=== PATIENT | male | born 1965 | race African-American/Black ===

== ENCOUNTER 2016-07-12 02:57 | Inpatient (IN) | payer OTHER ==
[2016-07-12] VITALS (13 sets, daily range): BP systolic 128–163; BP diastolic 75–98
[~2016-07-12] VITALS: Ht 193 cm; Wt 114.5 kg
[~2016-07-12 02:57] MED LIST: BENZTROPINE MESY1 MG PO; CALCIUM-VITAMI1 EAC2 PO; DEPAKOTE250 MG PO; DEPAKOTE500 MG PO; EFFEXOR XR150 MG PO; GABAPENTIN600 MG PO; GINKGO BILOBA500 MG PO; HUMALOG100 UNIT/1 SC; HUMULIN 70100 UNIT/2 SC; HUMULIN R100 UNITS/ SC; HYDROCHLOROTHIA25 MG PO; LEVEMIR FL100 UNIT/1 SC; LEVEMIR100 UNIT/2 SC; LIPITOR40 MG PO; LISINOPRIL10 MG PO; LISINOPRIL20 MG PO; LISINOPRIL5 MG PO; LO-DOSE ASPIRIN81 M1 PO; LOXAPINE5 MG PO; MELOXICAM7.5 MG PO; METFORMIN HCL500 MG PO; METHOCARBAMOL500 MG PO; MOBIC7.5 MG PO; NEURONTIN600 MG PO; NOVOLOG PE100 UNITS/ SC; PREDNISONE20 MG PO; PROAIR RESPICL90 MCG IH; QVAR 80 MCG IN7.3 GM IH; RISPERDAL3 MG PO; ROBAXIN500 MG PO; THIOTHIXENE5 MG PO; THORAZINE50 MG PO; TRAZODONE HCL150 MG PO; VENLAFAXINE HC150 M1 PO; VENTOLIN HFA18 GM IH; WELLBUTRIN XL150 MG PO; ZITHROMAX Z-PA250 MG PO
[2016-07-12 03:36] LABS: ADD MIUA? NO; BILIRUBIN NEGATIVE; BLOOD NEGATIVE; COLOR YELLOW ((YELLOW)); GLUCOSE (STRIP) >=1000; KETONES 40; LEUKOCYTES NEGATIVE; NITRITE NEGATIVE; PROTEIN (STRIP) TRACE; UCUL ADDED? NO; UROBILINOGEN 0.2 MG/DL (0.2-1.0)
[2016-07-12 03:37] LABS: EOSINOPHIL (%) 1.3 % (0-5); EOSINOPHIL COUNT 0.1 K/uL (0-0.3); HEMATOCRIT 42.4 % (38.0-50.0); IMMATURE GRANULOCYTE (%) 0.1 % (0.0-0.7); IMMATURE GRANULOCYTE COUNT 0.1 K/uL; LYMPHOCYTE COUNT 2.1 K/uL (1.0-2.8); MCHC 35.4 G/DL (30.0-36.0); MCV 81.9 FL (86-99); MEAN PLAT.VOLUME 10.6 uM^3 (9.0-12.4); MONOCYTE (%) 8.4 % (3-12); MONOCYTE COUNT 0.8 K/uL (0-0.8); NEUTROPHIL (%) 68.3 % (45-76); NEUTROPHIL COUNT 6.5 K/uL (1.8-6.4); PLATELET COUNT 296 K/uL (156-360); RBC DIS.WIDTH-CV 13.1 % (11.8-14.6); RBC DIS.WIDTH-SD 38.3 % (39-53); RED BLOOD COUNT 5.18 M/uL (4.00-5.50); WHITE BLOOD COUNT 9.5 K/uL (4.1-10.2)
[2016-07-12 03:43] LABS: CARBON DIOXIDE (BICARBONATE) 20.8 MEQ/L (20-31)
[2016-07-12 03:46] LABS: CHLORIDE 95 mEq/L (99-109); POTASSIUM 4.2 mEq/L (3.7-5.4); SODIUM 131 mEq/L (136-147)
[2016-07-12 03:47] LABS: MAGNESIUM 2.2 mg/dL (1.3-2.7)
[2016-07-12 03:50] LABS: ANION GAP 21 MEQ/L (2-14); TOTAL BILIRUBIN 0.5 mg/dL (0.0-1.0)
[2016-07-12 03:52] LABS: ALKALINE PHOSPHATASE 78 IU/L (3-129); GFR ESTIMATE (CALCULATED) > 59 mL/min/
[2016-07-12 03:53] LABS: UREA NITROGEN (BUN) 10 mg/dL (9-23)
[2016-07-12 04:01] LABS: GLUCOSE 464 mg/dL (70-99)
[2016-07-12 05:10] LABS: POINT-OF-CARE METER ID UU14100415; POINT-OF-CARE USER ID HMLKAV
[2016-07-12 05:48] LABS: CHLORIDE 101 mEq/L (99-109); POTASSIUM 4.2 mEq/L (3.7-5.4); SODIUM 133 mEq/L (136-147)
[2016-07-12 05:50] LABS: GLUCOSE 281 mg/dL (70-99)
[2016-07-12 05:51] LABS: ANION GAP 17 MEQ/L (2-14)
[2016-07-12 05:53] LABS: GFR ESTIMATE (CALCULATED) > 59 mL/min/
[2016-07-12 05:54] LABS: UREA NITROGEN (BUN) 9 mg/dL (9-23)
[2016-07-12 07:14] LABS: POINT-OF-CARE METER ID UU14100415
[2016-07-12] MEDS ORDERED: PRINIVIL20 MG PO (07:43)
[2016-07-12] MEDS ORDERED: REMERON15 M2 PO (07:46)
[2016-07-12 08:54] LABS: POINT-OF-CARE METER ID UU14100415
[2016-07-12 09:52] LABS: POINT-OF-CARE METER ID UU14100415
[2016-07-12 10:59] LABS: POINT-OF-CARE METER ID UU13113748
[2016-07-12 11:46] LABS: POINT-OF-CARE METER ID UU14100415; POINT-OF-CARE USER ID HMLKAV
[2016-07-12 11:57] LABS: POINT-OF-CARE METER ID UU13113748
[2016-07-12 12:25] LABS: MAGNESIUM 2.2 mg/dl (1.3-2.7)
[2016-07-12 13:01] LABS: POINT-OF-CARE METER ID UU13113748
[2016-07-12 13:20] LABS: METH RESISTANT S AUREUS PCR NEGATIVE (NEGATIVE); PROBE CHECK PASS; SPECIMEN PROCESSING CONTROL PASS
[2016-07-12 13:46] LABS: Estimated Average Glucose 243 mg/dL (70-123)
[2016-07-12 13:48] LABS: HEMOGLOBIN A1c (GLYCOHEMOGLOB) 10.1 % HGB (Below 5.7)
[2016-07-12 13:57] LABS: POINT-OF-CARE METER ID UU13113748
[2016-07-12 15:11] LABS: POINT-OF-CARE METER ID UU14162636
[2016-07-12 15:59] LABS: POINT-OF-CARE METER ID UU13113748
[2016-07-12 16:22] LABS: ANION GAP 14 MEQ/L (2-14); CHLORIDE 101 MEQ/L (99-109); POTASSIUM 3.9 MEQ/L (3.7-5.4); SAMPLE HEMOLYSIS CHECK 0; SAMPLE ICTERIC CHECK 0; SAMPLE LIPEMIA CHECK 0; SODIUM 134 MEQ/L (136-147)
[2016-07-12 16:27] LABS: GFR ESTIMATE (CALCULATED) > 59 mL/min/; GLUCOSE 143 mg/dL (70-99); UREA NITROGEN (BUN) 7 mg/dL (9-23)
[2016-07-12 16:53] LABS: POINT-OF-CARE METER ID UU14162636
[2016-07-12 17:18] LABS: POINT-OF-CARE METER ID UU13113748
[2016-07-12 18:46] LABS: POINT-OF-CARE METER ID UU13113748
[2016-07-12 20:14] LABS: ANION GAP 19 MEQ/L (2-14); CHLORIDE 97 MEQ/L (99-109); SAMPLE HEMOLYSIS CHECK 0; SAMPLE ICTERIC CHECK 0; SAMPLE LIPEMIA CHECK 0; SODIUM 134 MEQ/L (136-147)
[2016-07-12 20:19] LABS: GFR ESTIMATE (CALCULATED) > 59 mL/min/; UREA NITROGEN (BUN) 9 mg/dL (9-23)
[2016-07-12 20:29] LABS: GLUCOSE 272 mg/dL (70-99)
[2016-07-13] VITALS (13 sets, daily range): BP systolic 107–172; BP diastolic 67–92
[2016-07-13 00:33] LABS: CHLORIDE 102 mEq/L (99-109); POTASSIUM 3.7 mEq/L (3.7-5.4); SODIUM 134 mEq/L (136-147)
[2016-07-13 00:35] LABS: GLUCOSE 262 mg/dL (70-99)
[2016-07-13 00:36] LABS: ANION GAP 15 MEQ/L (2-14)
[2016-07-13 00:39] LABS: GFR ESTIMATE (CALCULATED) > 59 mL/min/; UREA NITROGEN (BUN) 9 mg/dL (9-23)
[2016-07-13 04:40] LABS: EOSINOPHIL (%) 3.4 % (0-5); EOSINOPHIL COUNT 0.2 K/uL (0-0.3); HEMATOCRIT 38.7 % (38.0-50.0); IMMATURE GRANULOCYTE (%) 0.1 % (0.0-0.7); IMMATURE GRANULOCYTE COUNT 0.1 K/uL; LYMPHOCYTE COUNT 2.7 K/uL (1.0-2.8); MCH 28.8 PG (29.0-34.0); MCHC 34.6 G/DL (30.0-36.0); MCV 83.2 FL (86-99); MEAN PLAT.VOLUME 10.7 uM^3 (9.0-12.4); MONOCYTE (%) 7.2 % (3-12); MONOCYTE COUNT 0.5 K/uL (0-0.8); NEUTROPHIL (%) 51.1 % (45-76); NEUTROPHIL COUNT 3.6 K/uL (1.8-6.4); PLATELET COUNT 249 K/uL (156-360); RBC DIS.WIDTH-CV 13.6 % (11.8-14.6); RBC DIS.WIDTH-SD 39.3 % (39-53); RED BLOOD COUNT 4.65 M/uL (4.00-5.50); WHITE BLOOD COUNT 7.1 K/uL (4.1-10.2)
[2016-07-13 04:46] LABS: CHLORIDE 102 mEq/L (99-109); POTASSIUM 4.1 mEq/L (3.7-5.4); SODIUM 135 mEq/L (136-147)
[2016-07-13 04:48] LABS: GLUCOSE 306 mg/dL (70-99)
[2016-07-13 04:50] LABS: ANION GAP 15 MEQ/L (2-14)
[2016-07-13 04:52] LABS: GFR ESTIMATE (CALCULATED) > 59 mL/min/
[2016-07-13 04:53] LABS: UREA NITROGEN (BUN) 10 mg/dL (9-23)
[2016-07-13 08:58] LABS: ANION GAP 13 MEQ/L (2-14); CHLORIDE 102 MEQ/L (99-109); GFR ESTIMATE (CALCULATED) > 59 mL/min/; GLUCOSE 251 mg/dL (70-99); SAMPLE HEMOLYSIS CHECK 0; SAMPLE ICTERIC CHECK 0; SAMPLE LIPEMIA CHECK 0; SODIUM 135 MEQ/L (136-147); UREA NITROGEN (BUN) 9 mg/dL (9-23)
[2016-07-13 12:37] LABS: POINT-OF-CARE METER ID UU13113748
[2016-07-13 12:46] LABS: ANION GAP 14 MEQ/L (2-14); CHLORIDE 99 MEQ/L (99-109); GFR ESTIMATE (CALCULATED) > 59 mL/min/; GLUCOSE 326 mg/dL (70-99); POTASSIUM 4.1 MEQ/L (3.7-5.4); SAMPLE HEMOLYSIS CHECK 0; SAMPLE ICTERIC CHECK 0; SAMPLE LIPEMIA CHECK 0; SODIUM 134 MEQ/L (136-147); UREA NITROGEN (BUN) 9 mg/dL (9-23)
[2016-07-14 05:50] LABS: POINT-OF-CARE METER ID UU13113725
[2016-07-14 06:33] LABS: EOSINOPHIL (%) 3.4 % (0-5); EOSINOPHIL COUNT 0.2 K/uL (0-0.3); IMMATURE GRANULOCYTE (%) 0.2 % (0.0-0.7); LYMPHOCYTE COUNT 2.1 K/uL (1.0-2.8); MCH 28.7 PG (29.0-34.0); MCHC 33.3 G/DL (30.0-36.0); MCV 86.1 FL (86-99); MEAN PLAT.VOLUME 11.7 uM^3 (9.0-12.4); MONOCYTE (%) 9.5 % (3-12); MONOCYTE COUNT 0.5 K/uL (0-0.8); NEUTROPHIL (%) 48.7 % (45-76); NEUTROPHIL COUNT 2.7 K/uL (1.8-6.4); NRBC (%) 0.7 /100 WBC (0-0); PLATELET COUNT 232 K/uL (156-360); RBC DIS.WIDTH-CV 13.8 % (11.8-14.6); RBC DIS.WIDTH-SD 42.5 % (39-53); RED BLOOD COUNT 4.53 M/uL (4.00-5.50); WHITE BLOOD COUNT 5.6 K/uL (4.1-10.2)
[2016-07-14 08:51] VITALS: BP 138/70
[2016-07-14 11:14] LABS: POINT-OF-CARE METER ID UU13113725
[2016-07-14 12:38] LABS: ANION GAP 10 MEQ/L (2-14); CHLORIDE 104 MEQ/L (99-109); GFR ESTIMATE (CALCULATED) > 59 mL/min/; GLUCOSE 312 mg/dL (70-99); SAMPLE HEMOLYSIS CHECK 0; SAMPLE ICTERIC CHECK 0; SAMPLE LIPEMIA CHECK 1; SODIUM 136 MEQ/L (136-147); UREA NITROGEN (BUN) 9 mg/dL (9-23)
[2016-07-14 16:13] VITALS: BP 191/89
[2016-07-14 16:18] LABS: POINT-OF-CARE METER ID UU13113725
[2016-07-14 22:50] VITALS: BP 132/70
[2016-07-15 05:50] LABS: EOSINOPHIL (%) 3.6 % (0-5); EOSINOPHIL COUNT 0.2 K/uL (0-0.3); HEMATOCRIT 39.5 % (38.0-50.0); IMMATURE GRANULOCYTE (%) 0.2 % (0.0-0.7); LYMPHOCYTE COUNT 1.9 K/uL (1.0-2.8); MCH 28.9 PG (29.0-34.0); MCHC 33.7 G/DL (30.0-36.0); MCV 85.9 FL (86-99); MEAN PLAT.VOLUME 11.3 uM^3 (9.0-12.4); MONOCYTE COUNT 0.4 K/uL (0-0.8); NEUTROPHIL (%) 53.3 % (45-76); NEUTROPHIL COUNT 2.9 K/uL (1.8-6.4); PLATELET COUNT 221 K/uL (156-360); RBC DIS.WIDTH-CV 13.7 % (11.8-14.6); RBC DIS.WIDTH-SD 42.7 % (39-53); WHITE BLOOD COUNT 5.5 K/uL (4.1-10.2)
[2016-07-15 06:04] LABS: POINT-OF-CARE METER ID UU13113725
[2016-07-15 07:58] VITALS: BP 155/95
[2016-07-15 11:27] LABS: ANION GAP 12 MEQ/L (2-14); CHLORIDE 106 MEQ/L (99-109); GFR ESTIMATE (CALCULATED) > 59 mL/min/; GLUCOSE 332 mg/dL (70-99); POTASSIUM 4.2 MEQ/L (3.7-5.4); SODIUM 141 MEQ/L (136-147); UREA NITROGEN (BUN) 10 mg/dL (9-23)
[2016-07-15 11:45] LABS: ADD MIUA? YES; BILIRUBIN NEGATIVE; BLOOD NEGATIVE; COLOR YELLOW ((YELLOW)); GLUCOSE (STRIP) >=1000; KETONES NEGATIVE; LEUKOCYTES SMALL; NITRITE NEGATIVE; PROTEIN (STRIP) NEGATIVE; SPECIFIC GRAVITY 1.035 (1.000-1.030)
[2016-07-15 13:44] LABS: EPITHELIAL CELLS RARE; MUCUS NONE SEEN; RED BLOOD CELLS 0-5 /HPF (0-5)
[2016-07-15 13:45] LABS: BACTERIA NONE SEEN; CASTS NONE SEEN /LPF; CRYSTALS NONE SEEN
[2016-07-15 17:06] VITALS: BP 139/78
[2016-07-15 22:39] VITALS: BP 138/83
[2016-07-16 06:53] LABS: ANION GAP 9 MEQ/L (2-14); CHLORIDE 105 MEQ/L (99-109); GFR ESTIMATE (CALCULATED) > 59 mL/min/; GLUCOSE 356 mg/dL (70-99); SAMPLE HEMOLYSIS CHECK 0; SAMPLE ICTERIC CHECK 0; SAMPLE LIPEMIA CHECK 0; SODIUM 141 MEQ/L (136-147); UREA NITROGEN (BUN) 11 mg/dL (9-23)
[2016-07-16 08:47] VITALS: BP 126/88
[2016-07-16] MEDS ORDERED: GLUCOMETER MC (10:46)
[2016-07-16] MEDS ORDERED: GABAPENTIN300 MG PO (10:46)
[2016-07-16] MEDS ORDERED: LEVEMIR FL100 UNIT/1 SC (10:46)
[2016-07-16] MEDS ORDERED: NOVOLOG PE100 UNITS/ SC (10:46)
[2016-07-16] MEDS ORDERED: TEST STRIPS MC (10:46)
[2016-07-16] MEDS ORDERED: [UNRECOGNIZED DRUG - SUPPLY] MC (10:46)
[2016-07-16 16:09] VITALS: BP 130/86
[2016-07-17 12:37] LABS: CHLAMYDIA TRACHOMATIS NEGATIVE; NEISSERIA GONORRHOEAE NEGATIVE
== END 2016-07-16 17:11 | disposition home or self-care (01) | DRG 638 ==
LOC: EME 02:57 → 4WEST 07:53 → 5EAST 07:53 → EDOF 07:53 → 4WEST 10:05 → 5EAST 07-13 17:02
PROVIDERS: Emergency Medicine; Hospitalist; Internal Medicine; Internal Medicine Nephrology
DX: E10.10 Type 1 diabetes mellitus with ketoacidosis without coma (principal); E87.1 Hypo-osmolality and hyponatremia; N17.9 Acute kidney failure, unspecified; F33.9 Major depressive disorder, recurrent, unspecified; E10.42 Type 1 diabetes mellitus with diabetic polyneuropathy; E86.0 Dehydration; E10.65 Type 1 diabetes mellitus with hyperglycemia; K21.9 Gastro-esophageal reflux disease without esophagitis; Z91.128 Patient's intentional underdosing of medication regimen for other reason; I10 Essential (primary) hypertension; F17.210 Nicotine dependence, cigarettes, uncomplicated; R00.0 Tachycardia, unspecified; G40.909 Epilepsy, unspecified, not intractable, without status epilepticus; F20.9 Schizophrenia, unspecified; J45.909 Unspecified asthma, uncomplicated; Z79.4 Long term (current) use of insulin
CPT/HCPCS: 80048; 80048 91; 80053; 80164; 81003; 82009; 82803; 82948; 83036; 83735; 84100; 85025; 87491; 87591; 87641; 94640; 94640 76; 99202; 99281; 99285; J0456; J1644; J1815; J7030; J7050; J7120

== ENCOUNTER 2016-07-22 20:05 | Inpatient (IN) | payer OTHER ==
[~2016-07-22] VITALS: Ht 193 cm; Wt 111.0 kg
[~2016-07-22 20:05] MED LIST changes: +GABAPENTIN300 MG PO; +GLUCOMETER MC; +PRINIVIL20 MG PO; +REMERON15 M2 PO; +TEST STRIPS MC; +[UNRECOGNIZED DRUG - SUPPLY] MC
[2016-07-22 20:24] LABS: ADD MIUA? NO; BILIRUBIN NEGATIVE; BLOOD NEGATIVE; COLOR YELLOW ((YELLOW)); GLUCOSE (STRIP) >=1000; KETONES 40; LEUKOCYTES NEGATIVE; NITRITE NEGATIVE; PROTEIN (STRIP) NEGATIVE; SPECIFIC GRAVITY 1.035 (1.000-1.030); UCUL ADDED? NO; UROBILINOGEN 0.2 MG/DL (0.2-1.0)
[2016-07-22 21:17] LABS: CARBON DIOXIDE (BICARBONATE) 14.5 MEQ/L (20-31)
[2016-07-22 21:19] LABS: CHLORIDE 92 mEq/L (99-109); HEMATOCRIT 41.3 % (38.0-50.0); MCH 28.9 PG (29.0-34.0); MCHC 35.6 G/DL (30.0-36.0); MCV 81.1 FL (86-99); MEAN PLAT.VOLUME 11.2 uM^3 (9.0-12.4); PLATELET COUNT 382 K/uL (156-360); POTASSIUM 4.7 mEq/L (3.7-5.4); RBC DIS.WIDTH-CV 13.1 % (11.8-14.6); RBC DIS.WIDTH-SD 37.6 % (39-53); RED BLOOD COUNT 5.09 M/uL (4.00-5.50); WHITE BLOOD COUNT 8.9 K/uL (4.1-10.2)
[2016-07-22 21:21] LABS: GLUCOSE 712 mg/dL (70-99); SODIUM 128 mEq/L (136-147)
[2016-07-22 21:22] LABS: ANION GAP 22 MEQ/L (2-14)
[2016-07-22 21:23] LABS: TOTAL BILIRUBIN 0.4 mg/dL (0.0-1.0)
[2016-07-22 21:25] LABS: ALKALINE PHOSPHATASE 71 IU/L (3-129); GFR ESTIMATE (CALCULATED) 43 mL/min/
[2016-07-22 21:28] LABS: UREA NITROGEN (BUN) 22 mg/dL (9-23)
[2016-07-22 23:44] LABS: POINT-OF-CARE METER ID UU14100415
[2016-07-23] VITALS (17 sets, daily range): BP systolic 124–186; BP diastolic 59–95
[2016-07-23 00:12] LABS: POINT-OF-CARE METER ID UU14100415
[2016-07-23 00:23] LABS: AMPHETAMINE NEGATIVE (500 ng/mL); BARBITURATES NEGATIVE (200 ng/mL); BENZODIAZEPINES NEGATIVE (150 ng/mL); COCAINE NEGATIVE (150 ng/mL); INTERNAL CONTROLS VALID? YES; METHADONE NEGATIVE (200 ng/mL); METHAMPHETAMINE NEGATIVE (500 ng/mL); OPIATES (MORPHINE) NEGATIVE (100 ng/mL); OXYCODONE NEGATIVE (100 ng/mL); PHENCYCLIDINE NEGATIVE (25 ng/mL); PROPOXYPHENE NEGATIVE (300 ng/mL); THC CANNABINOIDS NEGATIVE (50 ng/mL); TRICYCLIC ANTIDEPRESSANTS NEGATIVE (300 ng/mL)
[2016-07-23 00:46] LABS: POINT-OF-CARE METER ID UU13113803
[2016-07-23 00:46] LABS: SERUM ETHYL ALCOHOL < 10 mg/dL
[2016-07-23 00:57] LABS: POTASSIUM 4.2 mEq/L (3.7-5.4); SODIUM 132 mEq/L (136-147)
[2016-07-23 00:59] LABS: CHLORIDE 102 mEq/L (99-109); GLUCOSE 333 mg/dL (70-99)
[2016-07-23 01:00] LABS: ANION GAP 17 MEQ/L (2-14)
[2016-07-23 01:02] LABS: GFR ESTIMATE (CALCULATED) > 59 mL/min/
[2016-07-23 01:03] LABS: UREA NITROGEN (BUN) 17 mg/dL (9-23)
[2016-07-23 01:31] LABS: INFLUENZA A VIRAL ANTIGEN NEGATIVE; INFLUENZA B VIRAL ANTIGEN NEGATIVE
[2016-07-23 01:47] LABS: METH RESISTANT S AUREUS PCR NEGATIVE (NEGATIVE)
[2016-07-23 01:50] LABS: PROBE CHECK PASS; SPECIMEN PROCESSING CONTROL PASS
[2016-07-23 01:52] LABS: POINT-OF-CARE METER ID UU14162636
[2016-07-23 02:41] LABS: MAGNESIUM 2.4 mg/dL (1.3-2.7)
[2016-07-23 02:58] LABS: POINT-OF-CARE METER ID UU13113748
[2016-07-23 03:54] LABS: HEMATOCRIT 36.4 % (38.0-50.0); MCH 28.9 PG (29.0-34.0); MCHC 35.7 G/DL (30.0-36.0); MCV 80.9 FL (86-99); MEAN PLAT.VOLUME 10.7 uM^3 (9.0-12.4); PLATELET COUNT 345 K/uL (156-360); RBC DIS.WIDTH-CV 13.2 % (11.8-14.6); RBC DIS.WIDTH-SD 37.5 % (39-53); WHITE BLOOD COUNT 9.2 K/uL (4.1-10.2)
[2016-07-23 04:04] LABS: POINT-OF-CARE METER ID UU13113748
[2016-07-23 04:07] LABS: CHLORIDE 106 mEq/L (99-109); SODIUM 135 mEq/L (136-147)
[2016-07-23 04:09] LABS: GLUCOSE 195 mg/dL (70-99)
[2016-07-23 04:10] LABS: ANION GAP 14 MEQ/L (2-14)
[2016-07-23 04:14] LABS: UREA NITROGEN (BUN) 12 mg/dL (9-23)
[2016-07-23 04:17] LABS: GFR ESTIMATE (CALCULATED) > 59 mL/min/
[2016-07-23 05:18] LABS: POINT-OF-CARE METER ID UU13113731
[2016-07-23 06:12] LABS: POINT-OF-CARE METER ID UU13113748
[2016-07-23 07:21] LABS: POINT-OF-CARE METER ID UU13113748
[2016-07-23 08:11] LABS: IRON 47 MCG/DL (35-150)
[2016-07-23 08:15] LABS: POINT-OF-CARE METER ID UU13113748
[2016-07-23 08:58] LABS: POINT-OF-CARE METER ID UU13113748
[2016-07-23 09:17] LABS: ANION GAP 9 MEQ/L (2-14); CHLORIDE 105 MEQ/L (99-109); GFR ESTIMATE (CALCULATED) > 59 mL/min/; GLUCOSE 204 mg/dL (70-99); SAMPLE HEMOLYSIS CHECK 0; SAMPLE ICTERIC CHECK 0; SAMPLE LIPEMIA CHECK 0; SODIUM 134 MEQ/L (136-147); UREA NITROGEN (BUN) 8 mg/dL (9-23)
[2016-07-23 09:28] LABS: POINT-OF-CARE METER ID UU13113748
[2016-07-23 10:24] LABS: POINT-OF-CARE METER ID UU13113748
[2016-07-23 11:00] LABS: POINT-OF-CARE METER ID UU13113748
[2016-07-23 12:03] LABS: POINT-OF-CARE METER ID UU13113748
[2016-07-23 12:40] LABS: ANION GAP 9 MEQ/L (2-14); CHLORIDE 104 MEQ/L (99-109); GFR ESTIMATE (CALCULATED) > 59 mL/min/; GLUCOSE 183 mg/dL (70-99); POTASSIUM 4.4 MEQ/L (3.7-5.4); SAMPLE HEMOLYSIS CHECK 0; SAMPLE ICTERIC CHECK 0; SAMPLE LIPEMIA CHECK 0; SODIUM 133 MEQ/L (136-147); UREA NITROGEN (BUN) 8 mg/dL (9-23)
[2016-07-23 12:50] LABS: POINT-OF-CARE METER ID UU13113748
[2016-07-23 13:39] LABS: POINT-OF-CARE METER ID UU13113748
[2016-07-23 17:56] LABS: POINT-OF-CARE METER ID UU13113748
[2016-07-23 21:25] LABS: POINT-OF-CARE METER ID UU14100415
[2016-07-23 21:25] LABS: POINT-OF-CARE METER ID UU14100415
[2016-07-23 21:58] LABS: POINT-OF-CARE METER ID UU13113748
[2016-07-24 00:45] LABS: CHLORIDE 105 mEq/L (99-109); POTASSIUM 3.9 mEq/L (3.7-5.4); SODIUM 138 mEq/L (136-147)
[2016-07-24 00:46] LABS: GLUCOSE 204 mg/dL (70-99)
[2016-07-24 00:48] LABS: ANION GAP 9 MEQ/L (2-14)
[2016-07-24 00:50] LABS: GFR ESTIMATE (CALCULATED) > 59 mL/min/
[2016-07-24 00:51] LABS: UREA NITROGEN (BUN) 10 mg/dL (9-23)
[2016-07-24 04:04] VITALS: BP 136/84
[2016-07-24 07:26] LABS: Estimated Average Glucose 275 mg/dL (70-123); HEMOGLOBIN A1c (GLYCOHEMOGLOB) 11.2 % HGB (Below 5.7)
[2016-07-24 09:20] VITALS: BP 135/77
[2016-07-24 11:32] VITALS: BP 123/69
[2016-07-24] MEDS ORDERED: NOVOLOG PE100 UNITS/ SC (14:45)
[2016-07-24 16:17] VITALS: BP 125/74
[2016-07-24 16:47] LABS: POINT-OF-CARE METER ID UU14149397
[2016-07-24 20:06] VITALS: BP 123/68
[2016-07-25 00:10] VITALS: BP 118/68
[2016-07-25 05:36] VITALS: BP 107/71
[2016-07-25 07:41] VITALS: BP 116/77
[2016-07-25] MEDS ORDERED: CEPHALEXIN500 MG PO ×2 (11:52→12:51)
[2016-07-25] MEDS ORDERED: NICOTINE PATCH1 EAC2 TD ×2 (11:52→12:51)
[2016-07-25] MEDS ORDERED: LEVEMIR100 UNIT/2 SC ×2 (11:53→12:51)
[2016-07-25] MEDS ORDERED: GABAPENTIN300 MG PO ×2 (11:53→12:51)
[2016-07-25] MEDS ORDERED: PERCOCET 5/31 TABLET PO ×2 (11:54→12:51)
[2016-07-25] MEDS ORDERED: NOVOLOG PE100 UNITS/ SC ×2 (11:54→12:51)
== END 2016-07-25 14:05 | disposition home or self-care (01) | DRG 638 ==
LOC: EME → EDBD 20:05 → EME 20:05 → EDOF 22:34 → 4WEST 22:34 → 3EAST 22:34 → 4WEST 07-23 00:15 → 3EAST 07-23 22:47
PROVIDERS: Emergency Medicine; Family Medicine; Hospitalist; Obstetrics & Gynecology
DX: E10.10 Type 1 diabetes mellitus with ketoacidosis without coma (principal); E87.1 Hypo-osmolality and hyponatremia; L03.116 Cellulitis of left lower limb; N17.9 Acute kidney failure, unspecified; F10.239 Alcohol dependence with withdrawal, unspecified; E86.0 Dehydration; I10 Essential (primary) hypertension; G40.909 Epilepsy, unspecified, not intractable, without status epilepticus; K21.9 Gastro-esophageal reflux disease without esophagitis; J45.909 Unspecified asthma, uncomplicated; F31.9 Bipolar disorder, unspecified; F25.9 Schizoaffective disorder, unspecified; F41.9 Anxiety disorder, unspecified; L40.9 Psoriasis, unspecified; F17.210 Nicotine dependence, cigarettes, uncomplicated; E87.8 Other disorders of electrolyte and fluid balance, not elsewhere classified; G89.29 Other chronic pain; E10.40 Type 1 diabetes mellitus with diabetic neuropathy, unspecified; E10.65 Type 1 diabetes mellitus with hyperglycemia; M19.90 Unspecified osteoarthritis, unspecified site; B95.1 Streptococcus, group B, as the cause of diseases classified elsewhere; Z79.4 Long term (current) use of insulin; Z83.3 Family history of diabetes mellitus; Z81.8 Family history of other mental and behavioral disorders; Z82.49 Family history of ischemic heart disease and other diseases of the circulatory system
CPT/HCPCS: 71010; 73660; 80048; 80048 91; 80053; 81003; 82009; 82607; 82746; 82803; 82948; 83036; 83540; 83735; 84100; 84466; 85027; 87070; 87075; 87076; 87077; 87205; 87502; 87641; 94640; 94640 76; 94760; 99281; 99285; G0480; J1815; J3411; J7030; J7050; S0028

== ENCOUNTER 2016-08-14 19:28 | Inpatient (IN) | payer OTHER ==
[~2016-08-14] VITALS: Ht 193 cm; Wt 99.4 kg
[~2016-08-14 19:28] MED LIST changes: +CEPHALEXIN500 MG PO; +NICOTINE PATCH1 EAC2 TD; +PERCOCET 5/31 TABLET PO
[2016-08-14 19:59] LABS: EOSINOPHIL (%) 1.8 % (0-5); EOSINOPHIL COUNT 0.2 K/uL (0-0.3); HEMATOCRIT 42.5 % (38.0-50.0); IMMATURE GRANULOCYTE (%) 0.3 % (0.0-0.7); IMMATURE GRANULOCYTE COUNT 0.3 K/uL; LYMPHOCYTE COUNT 2.4 K/uL (1.0-2.8); MCH 29.5 PG (29.0-34.0); MCHC 34.1 G/DL (30.0-36.0); MEAN PLAT.VOLUME 11.1 uM^3 (9.0-12.4); MONOCYTE (%) 10.3 % (3-12); MONOCYTE COUNT 1.1 K/uL (0-0.8); NEUTROPHIL (%) 63.8 % (45-76); NEUTROPHIL COUNT 6.7 K/uL (1.8-6.4); PLATELET COUNT 265 K/uL (156-360); RBC DIS.WIDTH-CV 14.1 % (11.8-14.6); RED BLOOD COUNT 4.92 M/uL (4.00-5.50); WHITE BLOOD COUNT 10.4 K/uL (4.1-10.2)
[2016-08-14 20:00] LABS: MCV 86.4 FL (86-99)
[2016-08-14 20:04] LABS: CHLORIDE 97 mEq/L (99-109); POTASSIUM 4.1 mEq/L (3.7-5.4); SODIUM 133 mEq/L (136-147)
[2016-08-14 20:07] LABS: ANION GAP 16 MEQ/L (2-14)
[2016-08-14 20:08] LABS: TOTAL BILIRUBIN 0.5 mg/dL (0.0-1.0)
[2016-08-14 20:09] LABS: ALKALINE PHOSPHATASE 88 IU/L (3-129)
[2016-08-14 20:10] LABS: GFR ESTIMATE (CALCULATED) > 59 mL/min/
[2016-08-14 20:11] LABS: UREA NITROGEN (BUN) 11 mg/dL (9-23)
[2016-08-14 20:30] VITALS: BP 159/116
[2016-08-14 20:38] LABS: GLUCOSE 525 mg/dL (70-99)
[2016-08-14 21:30] VITALS: BP 190/108
[2016-08-14 22:16] LABS: C-REACTIVE PROTEIN 129.2 MG/L (0-10); SAMPLE HEMOLYSIS CHECK 0; SAMPLE ICTERIC CHECK 0; SAMPLE LIPEMIA CHECK 0
[2016-08-14 22:31] VITALS: BP 169/125
[2016-08-14] MEDS ORDERED: LEVEMIR FL100 UNIT/1 SC (22:40)
[2016-08-14] MEDS ORDERED: GABAPENTIN600 MG PO (22:41)
[2016-08-14] MEDS ORDERED: AMMONIUM LACTA140 GM TP (22:41)
[2016-08-14] MEDS ORDERED: LOTRISONE15 GM TP (22:41)
[2016-08-14 23:20] LABS: POINT-OF-CARE METER ID UU13113702
[2016-08-14 23:30] VITALS: BP 159/90
[2016-08-15] VITALS (7 sets, daily range): BP systolic 124–180; BP diastolic 64–97
[2016-08-15 06:30] LABS: HEMATOCRIT 40.5 % (38.0-50.0); MCH 29.5 PG (29.0-34.0); MCHC 33.1 G/DL (30.0-36.0); MCV 89.2 FL (86-99); MEAN PLAT.VOLUME 11.4 uM^3 (9.0-12.4); PLATELET COUNT 241 K/uL (156-360); RBC DIS.WIDTH-CV 14.4 % (11.8-14.6); RBC DIS.WIDTH-SD 46.4 % (39-53); RED BLOOD COUNT 4.54 M/uL (4.00-5.50); WHITE BLOOD COUNT 9.8 K/uL (4.1-10.2)
[2016-08-15 06:47] LABS: EOSINOPHIL (%) 2.5 % (0-5); EOSINOPHIL COUNT 0.2 K/uL (0-0.3); IMMATURE GRANULOCYTE (%) 0.2 % (0.0-0.7); MONOCYTE (%) 9.7 % (3-12); NEUTROPHIL (%) 57.3 % (45-76); NEUTROPHIL COUNT 5.6 K/uL (1.8-6.4)
[2016-08-15 06:52] LABS: ANION GAP 10 MEQ/L (2-14); CHLORIDE 103 MEQ/L (99-109); GFR ESTIMATE (CALCULATED) > 59 mL/min/; GLUCOSE 202 mg/dL (70-99); POTASSIUM 3.6 MEQ/L (3.7-5.4); SAMPLE HEMOLYSIS CHECK 0; SAMPLE ICTERIC CHECK 0; SAMPLE LIPEMIA CHECK 0; SODIUM 138 MEQ/L (136-147); UREA NITROGEN (BUN) 8 mg/dL (9-23)
[2016-08-15 15:35] LABS: POINT-OF-CARE METER ID UU14149397
[2016-08-15 21:53] LABS: POINT-OF-CARE METER ID UU14149397
[2016-08-16 01:25] VITALS: BP 131/80
[2016-08-16 04:23] VITALS: BP 127/79
[2016-08-16 07:32] VITALS: BP 136/87
[2016-08-16 07:32] LABS: EOSINOPHIL (%) 3.8 % (0-5); EOSINOPHIL COUNT 0.2 K/uL (0-0.3); HEMATOCRIT 38.6 % (38.0-50.0); IMMATURE GRANULOCYTE (%) 0.2 % (0.0-0.7); LYMPHOCYTE COUNT 1.9 K/uL (1.0-2.8); MCH 29.7 PG (29.0-34.0); MCHC 32.9 G/DL (30.0-36.0); MCV 90.2 FL (86-99); MEAN PLAT.VOLUME 11.3 uM^3 (9.0-12.4); MONOCYTE (%) 8.1 % (3-12); MONOCYTE COUNT 0.5 K/uL (0-0.8); NEUTROPHIL (%) 57.3 % (45-76); NEUTROPHIL COUNT 3.7 K/uL (1.8-6.4); PLATELET COUNT 233 K/uL (156-360); RBC DIS.WIDTH-CV 14.5 % (11.8-14.6); RBC DIS.WIDTH-SD 47.6 % (39-53); RED BLOOD COUNT 4.28 M/uL (4.00-5.50)
[2016-08-16 07:33] LABS: WHITE BLOOD COUNT 6.4 K/uL (4.1-10.2)
[2016-08-16 07:35] LABS: ANION GAP 7 MEQ/L (2-14); CHLORIDE 108 MEQ/L (99-109); GFR ESTIMATE (CALCULATED) > 59 mL/min/; GLUCOSE 208 mg/dL (70-99); MAGNESIUM 2.4 mg/dl (1.3-2.7); POTASSIUM 4.2 MEQ/L (3.7-5.4); SAMPLE HEMOLYSIS CHECK 0; SAMPLE ICTERIC CHECK 0; SAMPLE LIPEMIA CHECK 0; SODIUM 141 MEQ/L (136-147); UREA NITROGEN (BUN) 10 mg/dL (9-23)
[2016-08-16 10:17] LABS: GFR ESTIMATE (CALCULATED) > 59 mL/min/
[2016-08-16 10:33] LABS: VANCOMYCIN, TROUGH 2.5 MCG/ML (10-20)
[2016-08-16 12:34] VITALS: BP 141/88
[2016-08-16 16:30] VITALS: BP 152/94
[2016-08-16 20:38] VITALS: BP 135/89
[2016-08-17] VITALS: BP 152/82
[2016-08-17 05:27] VITALS: BP 145/100
[2016-08-17 06:42] LABS: HEMATOCRIT 40.8 % (38.0-50.0); MCHC 31.1 G/DL (30.0-36.0); MCV 90.1 FL (86-99); MEAN PLAT.VOLUME 10.6 uM^3 (9.0-12.4); PLATELET COUNT 264 K/uL (156-360); RBC DIS.WIDTH-CV 14.4 % (11.8-14.6); RBC DIS.WIDTH-SD 47.3 % (39-53); RED BLOOD COUNT 4.53 M/uL (4.00-5.50); WHITE BLOOD COUNT 6.1 K/uL (4.1-10.2)
[2016-08-17 07:01] LABS: ANION GAP 8 MEQ/L (2-14); CHLORIDE 108 MEQ/L (99-109); GFR ESTIMATE (CALCULATED) > 59 mL/min/; GLUCOSE 124 mg/dL (70-99); POTASSIUM 4.2 MEQ/L (3.7-5.4); SAMPLE HEMOLYSIS CHECK 0; SAMPLE ICTERIC CHECK 0; SAMPLE LIPEMIA CHECK 0; SODIUM 142 MEQ/L (136-147); UREA NITROGEN (BUN) 9 mg/dL (9-23)
[2016-08-17 07:42] VITALS: BP 120/88
[2016-08-17 10:44] VITALS: BP 138/84
[2016-08-17 16:21] VITALS: BP 145/92
[2016-08-17 19:57] VITALS: BP 133/71
[2016-08-17 21:23] LABS: POINT-OF-CARE USER ID 603211116
[2016-08-18 00:29] VITALS: BP 144/85
[2016-08-18 02:12] LABS: POINT-OF-CARE METER ID UU14174225
[2016-08-18 06:37] LABS: POINT-OF-CARE USER ID 603211116
[2016-08-18 07:33] VITALS: BP 126/76
[2016-08-18 08:09] VITALS: BP 133/84
[2016-08-18 10:24] LABS: POINT-OF-CARE METER ID UU14188625
[2016-08-18 10:55] VITALS: BP 142/82
[2016-08-18 15:44] VITALS: BP 132/68
[2016-08-18 23:25] VITALS: BP 149/93
[2016-08-19 07:59] VITALS: BP 151/93
[2016-08-19 08:12] LABS: POINT-OF-CARE METER ID UU14188625
[2016-08-19 12:26] LABS: POINT-OF-CARE METER ID UU14174225
[2016-08-19 15:18] VITALS: BP 147/84
[2016-08-19 15:33] LABS: POINT-OF-CARE METER ID UU14188625
[2016-08-19 17:03] LABS: POINT-OF-CARE METER ID UU13113675; POINT-OF-CARE USER ID LABLCH83
[2016-08-19 20:00] VITALS: BP 142/87
[2016-08-20] VITALS: BP 149/82
[2016-08-20 04:00] VITALS: BP 148/91
[2016-08-20 08:11] VITALS: BP 149/97
[2016-08-20 08:18] LABS: POINT-OF-CARE METER ID UU14188625
[2016-08-20 12:06] LABS: POINT-OF-CARE METER ID UU14188625
[2016-08-20 16:33] VITALS: BP 147/89
[2016-08-20 17:00] VITALS: BP 147/89
[2016-08-20 17:08] LABS: POINT-OF-CARE METER ID UU14188625
[2016-08-20 22:22] LABS: POINT-OF-CARE METER ID UU14174225
[2016-08-21] VITALS: BP 141/82
[2016-08-21 07:00] VITALS: BP 143/94
[2016-08-21 15:58] VITALS: BP 165/97
[2016-08-21 16:39] LABS: POINT-OF-CARE METER ID UU14174225
[2016-08-22 00:23] VITALS: BP 149/88
[2016-08-22 07:49] VITALS: BP 160/85
[2016-08-22 14:59] VITALS: BP 151/78
[2016-08-22 16:29] LABS: POINT-OF-CARE METER ID UU14174225
[2016-08-23] VITALS: BP 147/88
[2016-08-23 08:09] VITALS: BP 131/80
[2016-08-23 09:10] LABS: HEMATOCRIT 43.5 % (38.0-50.0); MCH 29.9 PG (29.0-34.0); MCHC 33.1 G/DL (30.0-36.0); MCV 90.4 FL (86-99); MEAN PLAT.VOLUME 11.1 uM^3 (9.0-12.4); PLATELET COUNT 322 K/uL (156-360); RBC DIS.WIDTH-CV 13.7 % (11.8-14.6); RBC DIS.WIDTH-SD 45.3 % (39-53); RED BLOOD COUNT 4.81 M/uL (4.00-5.50); WHITE BLOOD COUNT 6.3 K/uL (4.1-10.2)
[2016-08-23 09:37] LABS: ANION GAP 7 MEQ/L (2-14); CHLORIDE 105 MEQ/L (99-109); GFR ESTIMATE (CALCULATED) > 59 mL/min/; GLUCOSE 110 mg/dL (70-99); POTASSIUM 4.5 MEQ/L (3.7-5.4); SAMPLE HEMOLYSIS CHECK 0; SAMPLE ICTERIC CHECK 0; SAMPLE LIPEMIA CHECK 0; SODIUM 141 MEQ/L (136-147); UREA NITROGEN (BUN) 11 mg/dL (9-23)
[2016-08-23 11:42] VITALS: BP 140/84
[2016-08-23 15:41] VITALS: BP 132/76
[2016-08-23 23:52] VITALS: BP 126/80
[2016-08-24 07:50] VITALS: BP 130/77
[2016-08-24 07:58] LABS: POINT-OF-CARE METER ID UU14188625
[2016-08-24] MEDS ORDERED: TRAZODONE HCL150 MG PO (12:05)
[2016-08-24] MEDS ORDERED: LOTRISONE15 GM TP (12:05)
[2016-08-24] MEDS ORDERED: ENDOCET 5-3251 EACH PO ×2 (12:05→16:06)
[2016-08-24] MEDS ORDERED: GABAPENTIN600 MG PO (12:05)
[2016-08-24] MEDS ORDERED: DEPAKOTE500 MG PO (12:05)
[2016-08-24] MEDS ORDERED: REMERON15 M2 PO (12:05)
[2016-08-24] MEDS ORDERED: QVAR 80 MCG IN7.3 GM IH (12:05)
[2016-08-24] MEDS ORDERED: AMOX TR-K CLV1 EAC4 PO (12:05)
[2016-08-24] MEDS ORDERED: NOVOLOG PE100 UNITS/ SC (12:05)
[2016-08-24] MEDS ORDERED: LOXAPINE5 MG PO (12:05)
[2016-08-24] MEDS ORDERED: OXYCONTIN10 MG PO (12:05)
[2016-08-24] MEDS ORDERED: PRINIVIL20 MG PO (12:05)
[2016-08-24] MEDS ORDERED: VENTOLIN HFA18 GM IH (12:05)
[2016-08-24] MEDS ORDERED: TYLENOL REGULA325 MG PO (12:05)
[2016-08-24] MEDS ORDERED: LEVEMIR FL100 UNIT/1 SC (12:05)
[2016-08-24] MEDS ORDERED: AMMONIUM LACTA140 GM TP (12:05)
[2016-08-24] MEDS ORDERED: LO-DOSE ASPIRIN81 M1 PO (12:05)
[2016-08-24] MEDS ORDERED: DEPAKOTE250 MG PO (12:05)
== END 2016-08-24 17:30 | disposition home health service (06) | DRG 623 ==
LOC: EME 19:28 → EDOF 22:11 → 3EAST 22:11 → 5SOUTH 22:11 → 3EAST 23:42 → 5SOUTH 08-16 00:45
PROVIDERS: Internal Medicine; Physician Assistant; Physician Assistant Medical
PROC: 0JBR0ZZ Excision of Left Foot Subcutaneous Tissue and Fascia, Open Approach (ICD-10-PCS; principal; 2016-08-19)
PROC: 0JDR0ZZ Extraction of Left Foot Subcutaneous Tissue and Fascia, Open Approach (ICD-10-PCS; principal; 2016-08-19)
DX: E10.69 Type 1 diabetes mellitus with other specified complication (principal); M86.172 Other acute osteomyelitis, left ankle and foot; E10.65 Type 1 diabetes mellitus with hyperglycemia; E10.628 Type 1 diabetes mellitus with other skin complications; E10.42 Type 1 diabetes mellitus with diabetic polyneuropathy; L03.116 Cellulitis of left lower limb; L03.032 Cellulitis of left toe; L02.612 Cutaneous abscess of left foot; B95.1 Streptococcus, group B, as the cause of diseases classified elsewhere; I10 Essential (primary) hypertension; F10.10 Alcohol abuse, uncomplicated; F25.0 Schizoaffective disorder, bipolar type; E87.6 Hypokalemia; G40.89 Other seizures; K21.9 Gastro-esophageal reflux disease without esophagitis; L40.9 Psoriasis, unspecified; J45.909 Unspecified asthma, uncomplicated; G89.29 Other chronic pain; F17.200 Nicotine dependence, unspecified, uncomplicated; Z79.4 Long term (current) use of insulin
CPT/HCPCS: 73630; 80048; 80053; 80202; 82565; 82948; 83605; 83735; 85025; 85027; 86140; 87040; 87070; 87075; 87077; 87186; 87205; 94640; 94640 76; 94760; 99202; 99281; 99285; J0295; J0360; J0692; J1170; J1644; J1650; J1815; J1885; J2250; J2270; J2405; J3010; J3370; J3411; J3475; J7030; J7050; J7120; S0020; S0028

== ENCOUNTER 2016-09-03 18:18 | Inpatient (IN) | payer OTHER ==
[~2016-09-03] VITALS: Ht 193 cm; Wt 119.0 kg
[~2016-09-03 18:18] MED LIST changes: +AMMONIUM LACTA140 GM TP; +AMOX TR-K CLV1 EAC4 PO; +ENDOCET 5-3251 EACH PO; +LOTRISONE15 GM TP; +OXYCONTIN10 MG PO; +TYLENOL REGULA325 MG PO
[2016-09-03 19:05] LABS: BASOPHIL COUNT 0.1 K/uL (0-0.1); EOSINOPHIL (%) 0.8 % (0-5); EOSINOPHIL COUNT 0.1 K/uL (0-0.3); HEMATOCRIT 48.4 % (38.0-50.0); IMMATURE GRANULOCYTE (%) 0.3 % (0.0-0.7); INSTRUMENT ABS NEUTROPHIL CT 7.5 K/uL; LYMPHOCYTE COUNT 1.6 K/uL (1.0-2.8); MCH 28.9 PG (29.0-34.0); MCHC 32.2 G/DL (30.0-36.0); MCV 89.8 FL (86-99); MEAN PLAT.VOLUME 11.2 uM^3 (9.0-12.4); MONOCYTE (%) 7.1 % (3-12); MONOCYTE COUNT 0.7 K/uL (0-0.8); NEUTROPHIL (%) 75.7 % (45-76); NEUTROPHIL COUNT 7.5 K/uL (1.8-6.4); PLATELET COUNT 401 K/uL (156-360); RBC DIS.WIDTH-CV 13.2 % (11.8-14.6); RBC DIS.WIDTH-SD 43.5 % (39-53); RED BLOOD COUNT 5.39 M/uL (4.00-5.50)
[2016-09-03 19:10] LABS: WHITE BLOOD COUNT 9.9 K/uL (4.1-10.2)
[2016-09-03 19:14] LABS: CHLORIDE 90 mEq/L (99-109); POTASSIUM 5.3 mEq/L (3.7-5.4); SODIUM 126 mEq/L (136-147)
[2016-09-03 19:17] LABS: ANION GAP 21 MEQ/L (2-14); D-DIMER ELISA 0.82 mg/L FEU (< 0.57)
[2016-09-03 19:18] LABS: TOTAL BILIRUBIN 0.6 mg/dL (0.0-1.0)
[2016-09-03 19:19] LABS: ALKALINE PHOSPHATASE 79 IU/L (3-129); GFR ESTIMATE (CALCULATED) 52 mL/min/
[2016-09-03 19:21] LABS: UREA NITROGEN (BUN) 13 mg/dL (9-23)
[2016-09-03 19:25] LABS: TROP-I INTERPRETATION NEGATIVE; TROPONIN-I < 0.01 ng/mL (0.0-0.30)
[2016-09-03 19:26] LABS: GLUCOSE 820 mg/dL (70-99)
[2016-09-03] MEDS ORDERED: METFORMIN HCL1000 MG PO (20:35)
[2016-09-03 21:00] VITALS: BP 153/89
[2016-09-03 22:00] VITALS: BP 154/92
[2016-09-03 22:16] LABS: METH RESISTANT S AUREUS PCR NEGATIVE (NEGATIVE)
[2016-09-03 22:18] LABS: PROBE CHECK PASS; SPECIMEN PROCESSING CONTROL PASS
[2016-09-03 22:29] LABS: POINT-OF-CARE METER ID UU13113803
[2016-09-03 22:58] LABS: POINT-OF-CARE METER ID UU13113803
[2016-09-03 23:00] VITALS: BP 144/78
[2016-09-03 23:49] LABS: POINT-OF-CARE METER ID UU13113803
[2016-09-04] VITALS (16 sets, daily range): BP systolic 106–142; BP diastolic 58–78
[2016-09-04 00:33] LABS: POINT-OF-CARE METER ID UU13113803
[2016-09-04 01:02] LABS: POTASSIUM 4.3 mEq/L (3.7-5.4)
[2016-09-04 01:04] LABS: CHLORIDE 103 mEq/L (99-109); SODIUM 133 mEq/L (136-147)
[2016-09-04 01:06] LABS: ANION GAP 12 MEQ/L (2-14)
[2016-09-04 01:08] LABS: GFR ESTIMATE (CALCULATED) > 59 mL/min/
[2016-09-04 01:09] LABS: UREA NITROGEN (BUN) 11 mg/dL (9-23)
[2016-09-04 01:11] LABS: GLUCOSE 241 mg/dL (70-99)
[2016-09-04 01:32] LABS: POINT-OF-CARE METER ID UU13113803
[2016-09-04 02:28] LABS: POINT-OF-CARE METER ID UU13113803
[2016-09-04 03:25] LABS: POINT-OF-CARE METER ID UU13113803
[2016-09-04 04:24] LABS: POINT-OF-CARE METER ID UU13113803
[2016-09-04 05:38] LABS: POINT-OF-CARE METER ID UU13113803
[2016-09-04 06:06] LABS: ANION GAP 12 MEQ/L (2-14); CHLORIDE 104 MEQ/L (99-109); GFR ESTIMATE (CALCULATED) > 59 mL/min/; POTASSIUM 3.8 MEQ/L (3.7-5.4); SAMPLE HEMOLYSIS CHECK 0; SAMPLE ICTERIC CHECK 0; SAMPLE LIPEMIA CHECK 0; SODIUM 136 MEQ/L (136-147); UREA NITROGEN (BUN) 10 mg/dL (9-23)
[2016-09-04 06:17] LABS: GLUCOSE 116 mg/dL (70-99)
[2016-09-04 06:18] LABS: POINT-OF-CARE METER ID UU13113803
[2016-09-04 07:46] LABS: POINT-OF-CARE METER ID UU13113803
[2016-09-04 07:50] LABS: POINT-OF-CARE METER ID UU13113803; POINT-OF-CARE USER ID 609231305
[2016-09-04 07:51] LABS: Estimated Average Glucose 318 mg/dL (70-123); HEMOGLOBIN A1c (GLYCOHEMOGLOB) 12.7 % HGB (Below 5.7)
[2016-09-04 08:14] LABS: POINT-OF-CARE METER ID UU13113803
[2016-09-04 08:55] LABS: ANION GAP 13 MEQ/L (2-14); CHLORIDE 104 MEQ/L (99-109); GFR ESTIMATE (CALCULATED) > 59 mL/min/; GLUCOSE 165 mg/dL (70-99); POTASSIUM 3.6 MEQ/L (3.7-5.4); SAMPLE HEMOLYSIS CHECK 0; SAMPLE ICTERIC CHECK 0; SAMPLE LIPEMIA CHECK 0; SODIUM 136 MEQ/L (136-147); UREA NITROGEN (BUN) 9 mg/dL (9-23)
[2016-09-04 09:53] LABS: HIV INDEX 0.09; HIV-1/2 AB/AG COMBO Nonreactive
[2016-09-04 10:25] LABS: POINT-OF-CARE METER ID UU13113803
[2016-09-04 18:30] LABS: POINT-OF-CARE METER ID UU14149397
[2016-09-05 02:31] LABS: POINT-OF-CARE METER ID UU14149397
[2016-09-05 03:44] VITALS: BP 117/68
[2016-09-05 06:05] LABS: POINT-OF-CARE METER ID UU14149397
[2016-09-05 08:17] LABS: HEMATOCRIT 39.8 % (38.0-50.0); MCH 28.6 PG (29.0-34.0); MCHC 32.7 G/DL (30.0-36.0); MCV 87.7 FL (86-99); RBC DIS.WIDTH-CV 13.4 % (11.8-14.6); RBC DIS.WIDTH-SD 43.1 % (39-53); RED BLOOD COUNT 4.54 M/uL (4.00-5.50)
[2016-09-05 08:20] LABS: WHITE BLOOD COUNT 6.2 K/uL (4.1-10.2)
[2016-09-05 08:22] LABS: ANION GAP 9 MEQ/L (2-14); CHLORIDE 104 MEQ/L (99-109); GFR ESTIMATE (CALCULATED) > 59 mL/min/; GLUCOSE 238 mg/dL (70-99); SODIUM 136 MEQ/L (136-147); UREA NITROGEN (BUN) 8 mg/dL (9-23)
[2016-09-05 08:30] VITALS: BP 149/94
[2016-09-05 08:32] LABS: PLATELET COUNT UNABLE TO REPORT K/uL (156-360)
[2016-09-05 10:15] LABS: POINT-OF-CARE METER ID UU14149397
[2016-09-05 14:07] LABS: POINT-OF-CARE METER ID UU14149397
[2016-09-05 16:30] VITALS: BP 131/55
[2016-09-05 18:07] VITALS: BP 144/88
[2016-09-05 21:26] LABS: POINT-OF-CARE METER ID UU14174225
[2016-09-06] VITALS: BP 150/98
[2016-09-06 06:44] LABS: HEMATOCRIT 38.2 % (38.0-50.0); MCH 28.6 PG (29.0-34.0); MCHC 32.5 G/DL (30.0-36.0); MEAN PLAT.VOLUME 11.6 uM^3 (9.0-12.4); PLATELET COUNT 237 K/uL (156-360); RBC DIS.WIDTH-CV 13.3 % (11.8-14.6); RBC DIS.WIDTH-SD 43.3 % (39-53); RED BLOOD COUNT 4.34 M/uL (4.00-5.50); WHITE BLOOD COUNT 5.5 K/uL (4.1-10.2)
[2016-09-06 07:21] LABS: ANION GAP 8 MEQ/L (2-14); CHLORIDE 105 MEQ/L (99-109); GFR ESTIMATE (CALCULATED) > 59 mL/min/; GLUCOSE 213 mg/dL (70-99); POTASSIUM 3.6 MEQ/L (3.7-5.4); SAMPLE HEMOLYSIS CHECK 0; SAMPLE ICTERIC CHECK 0; SAMPLE LIPEMIA CHECK 0; SODIUM 140 MEQ/L (136-147); UREA NITROGEN (BUN) 11 mg/dL (9-23)
[2016-09-06 10:44] LABS: POINT-OF-CARE METER ID UU14174225
[2016-09-06 12:41] LABS: POINT-OF-CARE METER ID UU14174225
[2016-09-06 12:42] LABS: POINT-OF-CARE METER ID UU14149397
[2016-09-06 17:12] VITALS: BP 130/92
[2016-09-06 17:21] LABS: POINT-OF-CARE METER ID UU14174225
[2016-09-07] VITALS: BP 145/88
[2016-09-07 07:07] LABS: EOSINOPHIL (%) 5.6 % (0-5); EOSINOPHIL COUNT 0.3 K/uL (0-0.3); IMMATURE GRANULOCYTE (%) 0.2 % (0.0-0.7); INSTRUMENT ABS NEUTROPHIL CT 2.2 K/uL; MCH 28.8 PG (29.0-34.0); MCV 89.8 FL (86-99); MEAN PLAT.VOLUME 11.5 uM^3 (9.0-12.4); MONOCYTE (%) 6.8 % (3-12); MONOCYTE COUNT 0.4 K/uL (0-0.8); NEUTROPHIL (%) 36.6 % (45-76); NEUTROPHIL COUNT 2.2 K/uL (1.8-6.4); PLATELET COUNT 255 K/uL (156-360); RBC DIS.WIDTH-CV 13.3 % (11.8-14.6); WHITE BLOOD COUNT 5.9 K/uL (4.1-10.2)
[2016-09-07 07:31] LABS: ANION GAP 10 MEQ/L (2-14); CHLORIDE 104 MEQ/L (99-109); GFR ESTIMATE (CALCULATED) > 59 mL/min/; GLUCOSE 188 mg/dL (70-99); POTASSIUM 3.9 MEQ/L (3.7-5.4); SAMPLE HEMOLYSIS CHECK 0; SAMPLE ICTERIC CHECK 0; SAMPLE LIPEMIA CHECK 0; SODIUM 141 MEQ/L (136-147); UREA NITROGEN (BUN) 11 mg/dL (9-23)
[2016-09-07 08:00] VITALS: BP 139/99
[2016-09-07 14:58] VITALS: BP 138/89
[2016-09-07 20:00] VITALS: BP 141/103
[2016-09-07 20:03] LABS: POINT-OF-CARE METER ID UU13113675
[2016-09-08 00:16] VITALS: BP 135/79
[2016-09-08 07:25] VITALS: BP 142/81
[2016-09-08 08:13] VITALS: BP 127/84
[2016-09-08 10:53] VITALS: BP 132/81
[2016-09-08 11:11] LABS: POINT-OF-CARE METER ID UU14174225
[2016-09-08 15:04] VITALS: BP 140/89
[2016-09-09 00:07] VITALS: BP 148/95
[2016-09-09 08:01] VITALS: BP 150/92
[2016-09-09 16:13] VITALS: BP 138/88
[2016-09-09 23:41] VITALS: BP 151/97
[2016-09-10 06:48] LABS: EOSINOPHIL (%) 5.5 % (0-5); EOSINOPHIL COUNT 0.4 K/uL (0-0.3); HEMATOCRIT 38.2 % (38.0-50.0); IMMATURE GRANULOCYTE (%) 0.2 % (0.0-0.7); INSTRUMENT ABS NEUTROPHIL CT 3.2 K/uL; LYMPHOCYTE COUNT 2.2 K/uL (1.0-2.8); MCH 28.4 PG (29.0-34.0); MCHC 31.9 G/DL (30.0-36.0); MEAN PLAT.VOLUME 11.5 uM^3 (9.0-12.4); MONOCYTE (%) 8.7 % (3-12); MONOCYTE COUNT 0.6 K/uL (0-0.8); NEUTROPHIL (%) 51.1 % (45-76); NEUTROPHIL COUNT 3.2 K/uL (1.8-6.4); PLATELET COUNT 250 K/uL (156-360); RED BLOOD COUNT 4.29 M/uL (4.00-5.50); WHITE BLOOD COUNT 6.3 K/uL (4.1-10.2)
[2016-09-10 07:25] LABS: ANION GAP 7 MEQ/L (2-14); CHLORIDE 102 MEQ/L (99-109); GFR ESTIMATE (CALCULATED) > 59 mL/min/; GLUCOSE 270 mg/dL (70-99); POTASSIUM 4.3 MEQ/L (3.7-5.4); SAMPLE HEMOLYSIS CHECK 0; SAMPLE ICTERIC CHECK 0; SAMPLE LIPEMIA CHECK 0; SODIUM 138 MEQ/L (136-147); UREA NITROGEN (BUN) 12 mg/dL (9-23)
[2016-09-10 07:37] VITALS: BP 148/92
[2016-09-10 07:40] LABS: POINT-OF-CARE METER ID UU14188625
[2016-09-10 16:02] VITALS: BP 146/93
[2016-09-11 00:25] VITALS: BP 143/91
[2016-09-11 07:52] VITALS: BP 129/86
[2016-09-11 11:25] LABS: POINT-OF-CARE METER ID UU14174225
[2016-09-11 15:07] VITALS: BP 154/96
[2016-09-11 21:55] LABS: POINT-OF-CARE USER ID 603211116
[2016-09-12] VITALS: BP 147/93
[2016-09-12 07:34] LABS: POINT-OF-CARE METER ID UU14188625
[2016-09-12 08:04] VITALS: BP 148/96
[2016-09-12 13:15] LABS: POINT-OF-CARE METER ID UU14188625
[2016-09-12 15:06] VITALS: BP 142/87
[2016-09-12 16:36] LABS: POINT-OF-CARE METER ID UU14188625
[2016-09-12 21:01] LABS: POINT-OF-CARE USER ID 603211116
[2016-09-12 23:35] VITALS: BP 134/82
[2016-09-13 07:52] LABS: POINT-OF-CARE METER ID UU14174225; POINT-OF-CARE USER ID 612031313
[2016-09-13 08:14] VITALS: BP 154/98
[2016-09-13] MEDS ORDERED: TYLENOL REGULA325 MG PO (11:30)
[2016-09-13] MEDS ORDERED: XARELTO15 MG PO (11:30)
[2016-09-13] MEDS ORDERED: OXYCODONE HCL5 MG PO (11:30)
[2016-09-13] MEDS ORDERED: NovoLOG Mix 70/30 Vi SC ×2 (11:30)
[2016-09-13 12:44] LABS: ANION GAP 12 MEQ/L (2-14); CHLORIDE 104 MEQ/L (99-109); GFR ESTIMATE (CALCULATED) > 59 mL/min/; GLUCOSE 190 mg/dL (70-99); SAMPLE HEMOLYSIS CHECK 0; SAMPLE ICTERIC CHECK 0; SAMPLE LIPEMIA CHECK 0; SODIUM 141 MEQ/L (136-147); UREA NITROGEN (BUN) 15 mg/dL (9-23)
[2016-09-13 15:55] VITALS: BP 150/81
[2016-09-13 16:04] LABS: POINT-OF-CARE METER ID UU14174225
== END 2016-09-13 17:26 | disposition home health service (06) | DRG 617 ==
LOC: EME 18:18 → EDOF 20:25 → 3EAST 20:25 → 5SOUTH 20:25 → 4WEST 20:25 → 3EAST 09-04 17:22 → 5SOUTH 09-05 17:57
PROVIDERS: Emergency Medicine; Hospitalist; Internal Medicine; Internal Medicine Pulmonary Disease; Physician Assistant Medical
PROC: 0Y6S0Z0 Detachment at Left 2nd Toe, Complete, Open Approach (ICD-10-PCS; principal; 2016-09-07)
DX: E13.10 Other specified diabetes mellitus with ketoacidosis without coma (principal); E87.0 Hyperosmolality and hypernatremia; M86.172 Other acute osteomyelitis, left ankle and foot; N17.9 Acute kidney failure, unspecified; I82.622 Acute embolism and thrombosis of deep veins of left upper extremity; R06.00 Dyspnea, unspecified; E11.42 Type 2 diabetes mellitus with diabetic polyneuropathy; I10 Essential (primary) hypertension; G89.29 Other chronic pain; E86.0 Dehydration; R00.0 Tachycardia, unspecified; K21.9 Gastro-esophageal reflux disease without esophagitis; F32.9 Major depressive disorder, single episode, unspecified; F25.0 Schizoaffective disorder, bipolar type; Z59.0 Homelessness; F17.200 Nicotine dependence, unspecified, uncomplicated; Z91.018 Allergy to other foods; Z91.030 Bee allergy status; Z91.14 Patient's other noncompliance with medication regimen; Z79.4 Long term (current) use of insulin
CPT/HCPCS: 71020; 80048; 80048 91; 80053; 82010; 82803; 82948; 83036; 83880; 84100; 84484; 85025; 85027; 85379; 86703; 87641; 88305; 88311; 93005; 93971; 94640; 94640 76; 99202; 99281; 99285; J0295; J1644; J1650; J1815; J2270; J2405; J3010; J7030; J7040; J7050; J7644; S0020

== ENCOUNTER 2016-09-15 00:28 | Inpatient (IN) | payer OTHER ==
[~2016-09-15] VITALS: Ht 193 cm; Wt 117.1 kg
[~2016-09-15 00:28] MED LIST changes: +METFORMIN HCL1000 MG PO; +NovoLOG Mix 70/30 Vi SC; +OXYCODONE HCL5 MG PO; +XARELTO15 MG PO
[2016-09-15 00:54] LABS: POINT-OF-CARE METER ID UU13113778
[2016-09-15 01:36] LABS: BASOPHIL COUNT 0.1 K/uL (0-0.1); EOSINOPHIL (%) 2.9 % (0-5); EOSINOPHIL COUNT 0.3 K/uL (0-0.3); HEMATOCRIT 41.3 % (38.0-50.0); IMMATURE GRANULOCYTE (%) 0.2 % (0.0-0.7); LYMPHOCYTE COUNT 2.4 K/uL (1.0-2.8); MCH 29.1 PG (29.0-34.0); MCHC 32.4 G/DL (30.0-36.0); MCV 89.8 FL (86-99); MEAN PLAT.VOLUME 10.4 uM^3 (9.0-12.4); MONOCYTE COUNT 1.1 K/uL (0-0.8); NEUTROPHIL (%) 61.4 % (45-76); PLATELET COUNT 293 K/uL (156-360); RBC DIS.WIDTH-CV 13.2 % (11.8-14.6); RBC DIS.WIDTH-SD 43.5 % (39-53); WHITE BLOOD COUNT 9.8 K/uL (4.1-10.2)
[2016-09-15 01:36] LABS: ADD MIUA? NO; BILIRUBIN NEGATIVE; BLOOD NEGATIVE; COLOR STRAW ((YELLOW)); GLUCOSE (STRIP) >=500; KETONES NEGATIVE; LEUKOCYTES NEGATIVE; NITRITE NEGATIVE; PROTEIN (STRIP) NEGATIVE; SPECIFIC GRAVITY 1.018 (1.000-1.030); UCUL ADDED? NO; UROBILINOGEN 0.2 MG/DL (0.2-1.0)
[2016-09-15 01:44] LABS: CARBON DIOXIDE (BICARBONATE) 26.2 MEQ/L (20-31)
[2016-09-15 01:55] LABS: CHLORIDE 102 mEq/L (99-109); POTASSIUM 4.3 mEq/L (3.7-5.4); SODIUM 138 mEq/L (136-147)
[2016-09-15 01:58] LABS: ANION GAP 13 MEQ/L (2-14)
[2016-09-15 02:00] LABS: SERUM ETHYL ALCOHOL 76 mg/dL
[2016-09-15 02:01] LABS: GFR ESTIMATE (CALCULATED) > 59 mL/min/
[2016-09-15 02:02] LABS: UREA NITROGEN (BUN) 9 mg/dL (9-23)
[2016-09-15 02:08] LABS: AMPHETAMINE NEGATIVE (500 ng/mL); BARBITURATES NEGATIVE (200 ng/mL); BENZODIAZEPINES NEGATIVE (150 ng/mL); COCAINE NEGATIVE (150 ng/mL); INTERNAL CONTROLS VALID? YES; METHADONE NEGATIVE (200 ng/mL); METHAMPHETAMINE NEGATIVE (500 ng/mL); OPIATES (MORPHINE) NEGATIVE (100 ng/mL); OXYCODONE NEGATIVE (100 ng/mL); PHENCYCLIDINE NEGATIVE (25 ng/mL); PROPOXYPHENE NEGATIVE (300 ng/mL); THC CANNABINOIDS NEGATIVE (50 ng/mL); TRICYCLIC ANTIDEPRESSANTS NEGATIVE (300 ng/mL)
[2016-09-15 02:18] LABS: GLUCOSE 402 mg/dL (70-99)
[2016-09-15 05:40] LABS: POINT-OF-CARE METER ID UU14100415; POINT-OF-CARE USER ID 611181311
[2016-09-15 08:05] LABS: POINT-OF-CARE METER ID UU14100415
[2016-09-15] MEDS ORDERED: LEVEMIR FL100 UNIT/1 SC (09:03)
[2016-09-15 10:41] LABS: POINT-OF-CARE METER ID UU14100415
[2016-09-15 11:03] VITALS: BP 151/86
[2016-09-15 11:32] LABS: POINT-OF-CARE METER ID UU13113830
[2016-09-15 12:23] VITALS: BP 151/86
[2016-09-15 15:16] VITALS: BP 134/63
[2016-09-15 17:09] LABS: POINT-OF-CARE METER ID UU13113830; POINT-OF-CARE USER ID BHSSMG
[2016-09-15 20:49] LABS: POINT-OF-CARE METER ID UU13113830; POINT-OF-CARE USER ID BHSSMG
[2016-09-16 06:25] LABS: POINT-OF-CARE METER ID UU13113830; POINT-OF-CARE USER ID ENVTLS63
[2016-09-16 07:42] VITALS: BP 132/88
[2016-09-16 08:25] LABS: POINT-OF-CARE METER ID UU13113830
[2016-09-16 11:46] LABS: POINT-OF-CARE METER ID UU13113830
[2016-09-16 15:27] VITALS: BP 135/76
[2016-09-16 16:42] LABS: POINT-OF-CARE METER ID UU13113830
[2016-09-16 20:21] LABS: POINT-OF-CARE METER ID UU13113830; POINT-OF-CARE USER ID BHSSMG
[2016-09-17 06:18] LABS: POINT-OF-CARE METER ID UU13113830; POINT-OF-CARE USER ID ENVTLS63
[2016-09-17 07:47] VITALS: BP 121/67
[2016-09-17 11:45] LABS: POINT-OF-CARE METER ID UU13113830
[2016-09-17 15:20] VITALS: BP 132/100
[2016-09-17 16:38] LABS: POINT-OF-CARE METER ID UU13113830
[2016-09-17 20:34] LABS: POINT-OF-CARE METER ID UU13113830; POINT-OF-CARE USER ID BHSSMG
[2016-09-18 03:56] LABS: POINT-OF-CARE METER ID UU13113830
[2016-09-18 06:32] LABS: POINT-OF-CARE METER ID UU13113830
[2016-09-18 07:57] VITALS: BP 149/94
[2016-09-18 11:49] LABS: POINT-OF-CARE METER ID UU13113830
[2016-09-18 15:48] VITALS: BP 141/86
[2016-09-18 16:35] LABS: POINT-OF-CARE METER ID UU13113830; POINT-OF-CARE USER ID BHSMEW
[2016-09-18 20:53] LABS: POINT-OF-CARE METER ID UU13113830; POINT-OF-CARE USER ID BHSMEW
[2016-09-18 21:19] VITALS: BP 139/83
[2016-09-18 22:54] LABS: POINT-OF-CARE METER ID UU13113830; POINT-OF-CARE USER ID BHSMEW
[2016-09-19 06:22] LABS: POINT-OF-CARE METER ID UU13113830
[2016-09-19 07:52] VITALS: BP 175/99
[2016-09-19 12:26] LABS: POINT-OF-CARE METER ID UU13113830
[2016-09-19 14:52] VITALS: BP 139/96
[2016-09-19 16:38] LABS: POINT-OF-CARE METER ID UU13113830; POINT-OF-CARE USER ID BHSTSA
[2016-09-19 21:28] LABS: POINT-OF-CARE METER ID UU13113830; POINT-OF-CARE USER ID BHSSMG
[2016-09-20 06:19] LABS: POINT-OF-CARE METER ID UU13113830; POINT-OF-CARE USER ID BHSSMG
[2016-09-20 07:23] VITALS: BP 142/84
[2016-09-20] MEDS ORDERED: DESYREL 150 MG150 MG PO (08:59)
[2016-09-20] MEDS ORDERED: NOVOLOG PE100 UNITS/ SC (08:59)
[2016-09-20] MEDS ORDERED: METFORMIN HCL1000 MG PO (08:59)
[2016-09-20] MEDS ORDERED: XARELTO15 MG PO (08:59)
[2016-09-20] MEDS ORDERED: OXYCONTIN10 MG PO (08:59)
[2016-09-20] MEDS ORDERED: LISINOPRIL20 MG PO (08:59)
[2016-09-20] MEDS ORDERED: GERI-HYDROLAC140 GM TP (08:59)
[2016-09-20] MEDS ORDERED: CLOTRIMAZOLE-BE15 GM TP (08:59)
[2016-09-20] MEDS ORDERED: VENTOLIN HFA18 GM IH (08:59)
[2016-09-20] MEDS ORDERED: GABAPENTIN600 MG PO (08:59)
[2016-09-20] MEDS ORDERED: LEVEMIR100 UNIT/2 SC (08:59)
[2016-09-20] MEDS ORDERED: FLOVENT 44120 INHALA IH (08:59)
== END 2016-09-20 09:21 | disposition home or self-care (01) | DRG 885 ==
LOC: EME 00:28 → 1WEST 05:20 → EDOF 05:20 → 1WEST 10:49
PROVIDERS: Emergency Medicine; Psychiatry & Neurology Psychiatry
DX: F33.9 Major depressive disorder, recurrent, unspecified (principal); R45.851 Suicidal ideations; M86.9 Osteomyelitis, unspecified; Z89.422 Acquired absence of other left toe(s); R45.850 Homicidal ideations; R51 Headache; F10.20 Alcohol dependence, uncomplicated; F41.9 Anxiety disorder, unspecified; I10 Essential (primary) hypertension; K21.9 Gastro-esophageal reflux disease without esophagitis; E11.40 Type 2 diabetes mellitus with diabetic neuropathy, unspecified; Z59.0 Homelessness
CPT/HCPCS: 70450; 80048; 81003; 82803; 82948; 85025; 90839; 94640; 94640 76; 97150 GO; 97165 GO; 99202; 99281; 99285; G0480; J1815; J7030

== ENCOUNTER 2016-10-30 23:27 | Inpatient (IN) | payer OTHER ==
[~2016-10-30] VITALS: Ht 193 cm; Wt 117.8 kg
[~2016-10-30 23:27] MED LIST changes: +CLOTRIMAZOLE-BE15 GM TP; +DESYREL 150 MG150 MG PO; +FLOVENT 44120 INHALA IH; +GERI-HYDROLAC140 GM TP
[2016-10-31] VITALS (7 sets, daily range): BP systolic 119–168; BP diastolic 82–96
[2016-10-31 00:37] LABS: EOSINOPHIL (%) 0.7 % (0-5); EOSINOPHIL COUNT 0.1 K/uL (0-0.3); HEMATOCRIT 44.2 % (38.0-50.0); IMMATURE GRANULOCYTE (%) 0.4 % (0.0-0.7); INSTRUMENT ABS NEUTROPHIL CT 5.8 K/uL; LYMPHOCYTE COUNT 2.1 K/uL (1.0-2.8); MCH 29.4 PG (29.0-34.0); MCHC 32.8 G/DL (30.0-36.0); MCV 89.5 FL (86-99); MEAN PLAT.VOLUME 10.1 uM^3 (9.0-12.4); MONOCYTE COUNT 0.4 K/uL (0-0.8); NEUTROPHIL (%) 68.4 % (45-76); NEUTROPHIL COUNT 5.8 K/uL (1.8-6.4); PLATELET COUNT 326 K/uL (156-360); RBC DIS.WIDTH-SD 42.7 % (39-53); RED BLOOD COUNT 4.94 M/uL (4.00-5.50); WHITE BLOOD COUNT 8.5 K/uL (4.1-10.2)
[2016-10-31 00:45] LABS: ADD MIUA? YES; BILIRUBIN NEGATIVE; BLOOD LARGE; COLOR YELLOW ((YELLOW)); GLUCOSE (STRIP) NEGATIVE; KETONES NEGATIVE; LEUKOCYTES NEGATIVE; NITRITE NEGATIVE; PROTEIN (STRIP) 100; SPECIFIC GRAVITY 1.014 (1.000-1.030); UROBILINOGEN 0.2 MG/DL (0.2-1.0)
[2016-10-31 00:49] LABS: AMYLASE 107 IU/L (1-118); CHLORIDE 106 mEq/L (99-109); POTASSIUM 3.5 mEq/L (3.7-5.4); SODIUM 140 mEq/L (136-147)
[2016-10-31 00:50] LABS: GLUCOSE 97 mg/dL (70-99)
[2016-10-31 00:52] LABS: ANION GAP 12 MEQ/L (2-14)
[2016-10-31 00:54] LABS: GFR ESTIMATE (CALCULATED) > 59 mL/min/; SERUM ETHYL ALCOHOL 311 mg/dL
[2016-10-31 00:55] LABS: UREA NITROGEN (BUN) 9 mg/dL (9-23)
[2016-10-31 00:57] LABS: LIPASE 224 U/L (1.0-51.0)
[2016-10-31 01:00] LABS: BACTERIA NONE SEEN /HPF; EPITHELIAL CELLS NONE SEEN /HPF; HYALINE CASTS 0-5 /LPF; MUCUS TRACE /LPF; RED BLOOD CELLS 30-40 /HPF (0-5); UCUL ADDED? NO; WHITE BLOOD CELLS 0-5 /HPF (0-5)
[2016-10-31 01:05] LABS: ADD MEDTOX COMMENT Y; AMPHETAMINE NEGATIVE (500 ng/mL); BARBITURATES NEGATIVE (200 ng/mL); BENZODIAZEPINES NEGATIVE (150 ng/mL); COCAINE NEGATIVE (150 ng/mL); INTERNAL CONTROLS VALID? YES; METHADONE NEGATIVE (200 ng/mL); METHAMPHETAMINE NEGATIVE (500 ng/mL); OPIATES (MORPHINE) PRESUMPTIVE POSITIVE (100 ng/mL); OXYCODONE NEGATIVE (100 ng/mL); PHENCYCLIDINE NEGATIVE (25 ng/mL); PROPOXYPHENE NEGATIVE (300 ng/mL); THC CANNABINOIDS PRESUMPTIVE POSITIVE (50 ng/mL); TRICYCLIC ANTIDEPRESSANTS NEGATIVE (300 ng/mL)
[2016-10-31] MEDS ORDERED: LEVEMIR FL100 UNIT/1 SC (01:25)
[2016-10-31] MEDS ORDERED: RISPERDAL2 MG PO (01:26)
[2016-10-31] MEDS ORDERED: TRADJENTA5 MG PO (01:27)
[2016-10-31] MEDS ORDERED: XARELTO20 MG PO (01:27)
[2016-10-31 06:37] LABS: HEMATOCRIT 42.2 % (38.0-50.0); MCH 29.4 PG (29.0-34.0); MCHC 32.5 G/DL (30.0-36.0); MCV 90.6 FL (86-99); PLATELET COUNT 343 K/uL (156-360); RBC DIS.WIDTH-CV 13.2 % (11.8-14.6); RBC DIS.WIDTH-SD 43.2 % (39-53); RED BLOOD COUNT 4.66 M/uL (4.00-5.50)
[2016-10-31 06:47] LABS: ALKALINE PHOSPHATASE 52 IU/L (3-129); ANION GAP 13 MEQ/L (2-14); CHLORIDE 108 MEQ/L (99-109); GFR ESTIMATE (CALCULATED) > 59 mL/min/; POTASSIUM 4.1 MEQ/L (3.7-5.4); SAMPLE HEMOLYSIS CHECK 0; SAMPLE ICTERIC CHECK 0; SAMPLE LIPEMIA CHECK 0; SODIUM 143 MEQ/L (136-147); TOTAL BILIRUBIN 0.3 MG/DL (0.0-1.0); UREA NITROGEN (BUN) 9 mg/dL (9-23)
[2016-10-31 06:48] LABS: GLUCOSE 146 mg/dL (70-99)
[2016-10-31 06:52] LABS: WHITE BLOOD COUNT 13.9 K/uL (4.1-10.2)
[2016-10-31 17:09] LABS: POINT-OF-CARE METER ID UU14188577
[2016-11-01 04:31] VITALS: BP 120/59
[2016-11-01 06:47] LABS: ANION GAP 8 MEQ/L (2-14); CHLORIDE 104 MEQ/L (99-109); GFR ESTIMATE (CALCULATED) > 59 mL/min/; GLUCOSE 194 mg/dL (70-99); SAMPLE HEMOLYSIS CHECK 0; SAMPLE ICTERIC CHECK 0; SAMPLE LIPEMIA CHECK 0; SODIUM 137 MEQ/L (136-147); UREA NITROGEN (BUN) 17 mg/dL (9-23)
[2016-11-01 06:48] LABS: EOSINOPHIL (%) 1.1 % (0-5); EOSINOPHIL COUNT 0.1 K/uL (0-0.3); HEMATOCRIT 32.3 % (38.0-50.0); IMMATURE GRANULOCYTE (%) 0.2 % (0.0-0.7); INSTRUMENT ABS NEUTROPHIL CT 6.5 K/uL; MCH 29.7 PG (29.0-34.0); MCHC 32.8 G/DL (30.0-36.0); MCV 90.5 FL (86-99); MONOCYTE (%) 8.9 % (3-12); MONOCYTE COUNT 0.7 K/uL (0-0.8); NEUTROPHIL (%) 78.1 % (45-76); NEUTROPHIL COUNT 6.5 K/uL (1.8-6.4); RBC DIS.WIDTH-CV 13.2 % (11.8-14.6); RBC DIS.WIDTH-SD 43.8 % (39-53)
[2016-11-01 06:54] LABS: RED BLOOD COUNT 3.57 M/uL (4.00-5.50); WHITE BLOOD COUNT 8.3 K/uL (4.1-10.2)
[2016-11-01 07:01] LABS: MEAN PLAT.VOLUME 10.5 uM^3 (9.0-12.4); PLAT.SUFFICIENCY ADEQUATE
[2016-11-01 07:16] LABS: PLATELET COUNT 226 K/uL (156-360)
[2016-11-01 08:06] VITALS: BP 144/74
[2016-11-01 10:11] LABS: LIPASE 19 U/L (1.0-51.0)
[2016-11-01 12:18] VITALS: BP 140/70
[2016-11-01 16:23] VITALS: BP 137/94
[2016-11-01] MEDS ORDERED: PERCOCET 7.51 TABLET PO (18:02)
[2016-11-01 19:52] VITALS: BP 164/80
[2016-11-01 21:27] LABS: POINT-OF-CARE METER ID UU14188577
[2016-11-02] VITALS (7 sets, daily range): BP systolic 141–175; BP diastolic 83–95
[2016-11-02 05:32] LABS: EOSINOPHIL (%) 1.3 % (0-5); EOSINOPHIL COUNT 0.1 K/uL (0-0.3); HEMATOCRIT 31.4 % (38.0-50.0); IMMATURE GRANULOCYTE (%) 0.5 % (0.0-0.7); INSTRUMENT ABS NEUTROPHIL CT 6.8 K/uL; MCH 29.4 PG (29.0-34.0); MCHC 32.5 G/DL (30.0-36.0); MCV 90.5 FL (86-99); MEAN PLAT.VOLUME 10.3 uM^3 (9.0-12.4); MONOCYTE (%) 9.2 % (3-12); MONOCYTE COUNT 0.8 K/uL (0-0.8); NEUTROPHIL (%) 76.9 % (45-76); NEUTROPHIL COUNT 6.8 K/uL (1.8-6.4); PLATELET COUNT 206 K/uL (156-360); RBC DIS.WIDTH-CV 13.3 % (11.8-14.6); RED BLOOD COUNT 3.47 M/uL (4.00-5.50); WHITE BLOOD COUNT 8.8 K/uL (4.1-10.2)
[2016-11-02 06:40] LABS: GFR ESTIMATE (CALCULATED) > 59 mL/min/; UREA NITROGEN (BUN) 9 mg/dL (9-23)
[2016-11-02 11:56] LABS: POINT-OF-CARE METER ID UU14149397
[2016-11-03] VITALS (7 sets, daily range): BP systolic 140–176; BP diastolic 82–103
[2016-11-03 05:08] LABS: EOSINOPHIL COUNT 0.3 K/uL (0-0.3); HEMATOCRIT 32.1 % (38.0-50.0); IMMATURE GRANULOCYTE (%) 0.4 % (0.0-0.7); INSTRUMENT ABS NEUTROPHIL CT 4.5 K/uL; LYMPHOCYTE COUNT 1.4 K/uL (1.0-2.8); MCHC 31.8 G/DL (30.0-36.0); MCV 91.2 FL (86-99); MEAN PLAT.VOLUME 10.4 uM^3 (9.0-12.4); MONOCYTE (%) 8.8 % (3-12); MONOCYTE COUNT 0.6 K/uL (0-0.8); NEUTROPHIL (%) 65.6 % (45-76); NEUTROPHIL COUNT 4.5 K/uL (1.8-6.4); PLATELET COUNT 203 K/uL (156-360); RBC DIS.WIDTH-CV 13.2 % (11.8-14.6); RBC DIS.WIDTH-SD 43.8 % (39-53); RED BLOOD COUNT 3.52 M/uL (4.00-5.50); WHITE BLOOD COUNT 6.8 K/uL (4.1-10.2)
[2016-11-03 05:16] LABS: CHLORIDE 107 mEq/L (99-109); POTASSIUM 3.8 mEq/L (3.7-5.4); SODIUM 141 mEq/L (136-147)
[2016-11-03 05:20] LABS: ANION GAP 8 MEQ/L (2-14)
[2016-11-03 05:21] LABS: TOTAL BILIRUBIN 0.5 mg/dL (0.0-1.0)
[2016-11-03 05:22] LABS: ALKALINE PHOSPHATASE 96 IU/L (3-129); GFR ESTIMATE (CALCULATED) > 59 mL/min/
[2016-11-03 05:23] LABS: UREA NITROGEN (BUN) 12 mg/dL (9-23)
[2016-11-03 05:24] LABS: GLUCOSE 84 mg/dL (70-99)
[2016-11-03 06:51] LABS: POINT-OF-CARE METER ID UU14188577
[2016-11-03 12:19] LABS: POINT-OF-CARE METER ID UU14188577
[2016-11-03 16:18] LABS: POINT-OF-CARE METER ID UU14188577
[2016-11-03 19:31] LABS: ADD MIUA? NO; BILIRUBIN NEGATIVE; BLOOD NEGATIVE; COLOR YELLOW ((YELLOW)); GLUCOSE (STRIP) NEGATIVE; KETONES NEGATIVE; LEUKOCYTES NEGATIVE; NITRITE NEGATIVE; PROTEIN (STRIP) NEGATIVE; SPECIFIC GRAVITY 1.008 (1.000-1.030); UCUL ADDED? NO; UROBILINOGEN 0.2 MG/DL (0.2-1.0)
[2016-11-03 22:12] LABS: POINT-OF-CARE METER ID UU14188577
[2016-11-04 03:45] VITALS: BP 146/72
[2016-11-04 06:46] LABS: POINT-OF-CARE METER ID UU14188577
[2016-11-04 07:23] VITALS: BP 182/98
[2016-11-04 11:17] VITALS: BP 158/98
[2016-11-04 15:18] VITALS: BP 111/23
[2016-11-04 19:46] VITALS: BP 152/84
[2016-11-04 23:42] VITALS: BP 144/84
[2016-11-05 03:58] VITALS: BP 139/84
[2016-11-05 06:25] LABS: EOSINOPHIL (%) 4.1 % (0-5); EOSINOPHIL COUNT 0.3 K/uL (0-0.3); HEMATOCRIT 32.2 % (38.0-50.0); IMMATURE GRANULOCYTE (%) 0.4 % (0.0-0.7); INSTRUMENT ABS NEUTROPHIL CT 5.4 K/uL; LYMPHOCYTE COUNT 1.2 K/uL (1.0-2.8); MCHC 31.7 G/DL (30.0-36.0); MCV 91.5 FL (86-99); MEAN PLAT.VOLUME 9.7 uM^3 (9.0-12.4); MONOCYTE (%) 12.3 % (3-12); NEUTROPHIL (%) 67.6 % (45-76); NEUTROPHIL COUNT 5.4 K/uL (1.8-6.4); PLATELET COUNT 289 K/uL (156-360); RBC DIS.WIDTH-CV 13.3 % (11.8-14.6); RBC DIS.WIDTH-SD 45.1 % (39-53); RED BLOOD COUNT 3.52 M/uL (4.00-5.50)
[2016-11-05 06:38] LABS: POINT-OF-CARE METER ID UU14188577
[2016-11-05 08:07] VITALS: BP 166/96
[2016-11-05 08:55] LABS: ANION GAP 10 MEQ/L (2-14); CHLORIDE 104 MEQ/L (99-109); GFR ESTIMATE (CALCULATED) > 59 mL/min/; GLUCOSE 93 mg/dL (70-99); MAGNESIUM 2.3 mg/dl (1.3-2.7); POTASSIUM 4.5 MEQ/L (3.7-5.4); SAMPLE HEMOLYSIS CHECK 0; SAMPLE ICTERIC CHECK 0; SAMPLE LIPEMIA CHECK 0; SODIUM 140 MEQ/L (136-147); UREA NITROGEN (BUN) 15 mg/dL (9-23)
[2016-11-05 10:50] LABS: HEMATOCRIT 33.6 % (38.0-50.0); MCH 29.3 PG (29.0-34.0); MCHC 32.4 G/DL (30.0-36.0); MCV 90.3 FL (86-99); PLATELET COUNT 294 K/uL (156-360); RBC DIS.WIDTH-CV 13.2 % (11.8-14.6); RBC DIS.WIDTH-SD 43.8 % (39-53); RED BLOOD COUNT 3.72 M/uL (4.00-5.50); WHITE BLOOD COUNT 9.8 K/uL (4.1-10.2)
[2016-11-05 11:47] VITALS: BP 144/86
[2016-11-05 16:30] VITALS: BP 145/84
[2016-11-05 16:34] LABS: POINT-OF-CARE METER ID UU14188577
[2016-11-05 20:03] VITALS: BP 165/80
[2016-11-05 23:26] VITALS: BP 139/88
[2016-11-06 04:13] VITALS: BP 132/76
[2016-11-06 05:57] LABS: POINT-OF-CARE METER ID UU14149397
[2016-11-06 06:07] LABS: EOSINOPHIL COUNT 0.2 K/uL (0-0.3); HEMATOCRIT 33.4 % (38.0-50.0); IMMATURE GRANULOCYTE (%) 0.6 % (0.0-0.7); IMMATURE GRANULOCYTE COUNT 0.1 K/uL; INSTRUMENT ABS NEUTROPHIL CT 8.7 K/uL; LYMPHOCYTE COUNT 1.5 K/uL (1.0-2.8); MCHC 31.7 G/DL (30.0-36.0); MCV 91.5 FL (86-99); MEAN PLAT.VOLUME 9.9 uM^3 (9.0-12.4); MONOCYTE (%) 12.5 % (3-12); MONOCYTE COUNT 1.5 K/uL (0-0.8); NEUTROPHIL (%) 72.2 % (45-76); NEUTROPHIL COUNT 8.7 K/uL (1.8-6.4); PLATELET COUNT 326 K/uL (156-360); RBC DIS.WIDTH-CV 13.1 % (11.8-14.6); RBC DIS.WIDTH-SD 43.6 % (39-53); RED BLOOD COUNT 3.65 M/uL (4.00-5.50); WHITE BLOOD COUNT 12.1 K/uL (4.1-10.2)
[2016-11-06 08:15] LABS: ANION GAP 11 MEQ/L (2-14); CHLORIDE 102 MEQ/L (99-109); GFR ESTIMATE (CALCULATED) > 59 mL/min/; GLUCOSE 116 mg/dL (70-99); POTASSIUM 4.5 MEQ/L (3.7-5.4); SAMPLE HEMOLYSIS CHECK 0; SAMPLE ICTERIC CHECK 0; SAMPLE LIPEMIA CHECK 0; SODIUM 136 MEQ/L (136-147); UREA NITROGEN (BUN) 12 mg/dL (9-23)
[2016-11-06 08:25] VITALS: BP 140/87
[2016-11-06 11:34] LABS: POINT-OF-CARE METER ID UU14149397
[2016-11-06 12:01] VITALS: BP 168/90
[2016-11-06 16:08] VITALS: BP 149/75
[2016-11-06 19:37] VITALS: BP 142/87
[2016-11-06 21:34] LABS: POINT-OF-CARE METER ID UU14149397
[2016-11-06 23:40] VITALS: BP 142/81
[2016-11-07 04:18] VITALS: BP 135/98
[2016-11-07 05:25] LABS: EOSINOPHIL (%) 4.4 % (0-5); EOSINOPHIL COUNT 0.4 K/uL (0-0.3); HEMATOCRIT 31.7 % (38.0-50.0); IMMATURE GRANULOCYTE (%) 0.3 % (0.0-0.7); LYMPHOCYTE COUNT 1.3 K/uL (1.0-2.8); MCH 30.1 PG (29.0-34.0); MCHC 32.8 G/DL (30.0-36.0); MCV 91.6 FL (86-99); MONOCYTE (%) 12.7 % (3-12); MONOCYTE COUNT 1.1 K/uL (0-0.8); NEUTROPHIL (%) 67.6 % (45-76); PLATELET COUNT 341 K/uL (156-360); RBC DIS.WIDTH-CV 13.2 % (11.8-14.6); RBC DIS.WIDTH-SD 44.1 % (39-53); RED BLOOD COUNT 3.46 M/uL (4.00-5.50); WHITE BLOOD COUNT 8.9 K/uL (4.1-10.2)
[2016-11-07 05:53] LABS: ANION GAP 12 MEQ/L (2-14); CHLORIDE 103 MEQ/L (99-109); GFR ESTIMATE (CALCULATED) > 59 mL/min/; GLUCOSE 128 mg/dL (70-99); POTASSIUM 4.6 MEQ/L (3.7-5.4); SAMPLE HEMOLYSIS CHECK 0; SAMPLE ICTERIC CHECK 0; SAMPLE LIPEMIA CHECK 0; SODIUM 137 MEQ/L (136-147); UREA NITROGEN (BUN) 15 mg/dL (9-23)
[2016-11-07 06:29] LABS: POINT-OF-CARE METER ID UU14188577
[2016-11-07 08:05] VITALS: BP 138/93
[2016-11-07 15:05] VITALS: BP 119/64
[2016-11-07] MEDS ORDERED: ARYMO ER15 MG PO (15:52)
[2016-11-07] MEDS ORDERED: PERCOCET 10/1 TABLET PO (15:52)
[2016-11-07] MEDS ORDERED: OXYCODONE-APAP1 EACH PO (15:54)
[2016-11-07 17:01] LABS: POINT-OF-CARE METER ID UU14149397
[2016-11-07 19:48] VITALS: BP 136/76
[2016-11-07 20:59] LABS: POINT-OF-CARE METER ID UU14149397
[2016-11-07 23:12] VITALS: BP 127/60
[2016-11-08 01:55] LABS: METH RESISTANT S AUREUS PCR NEGATIVE (NEGATIVE)
[2016-11-08 02:00] LABS: PROBE CHECK PASS; SPECIMEN PROCESSING CONTROL PASS
[2016-11-08 03:27] VITALS: BP 142/67
[2016-11-08 06:17] LABS: GFR ESTIMATE (CALCULATED) > 59 mL/min/
[2016-11-08 07:30] VITALS: BP 133/89
[2016-11-08 11:40] VITALS: BP 132/84
[2016-11-08] MEDS ORDERED: CEFDINIR300 MG PO ×2 (13:13→13:19)
[2016-11-08 16:05] VITALS: BP 134/82
[2016-11-08 16:09] LABS: POINT-OF-CARE METER ID UU14149397
== END 2016-11-08 17:23 | disposition home or self-care (01) | DRG 194 ==
LOC: EME → EDOF 10-31 01:20 → 3EAST 10-31 01:20
PROVIDERS: Emergency Medicine; Hospitalist; Internal Medicine; Physician Assistant; Surgery
DX: J18.9 Pneumonia, unspecified organism (principal); S36.112A Contusion of liver, initial encounter; S22.41XA Multiple fractures of ribs, right side, initial encounter for closed fracture; J44.9 Chronic obstructive pulmonary disease, unspecified; I48.91 Unspecified atrial fibrillation; G89.29 Other chronic pain; M54.9 Dorsalgia, unspecified; I10 Essential (primary) hypertension; E11.9 Type 2 diabetes mellitus without complications; I51.9 Heart disease, unspecified; F17.210 Nicotine dependence, cigarettes, uncomplicated; F12.10 Cannabis abuse, uncomplicated; F10.129 Alcohol abuse with intoxication, unspecified; F11.10 Opioid abuse, uncomplicated; Y90.8 Blood alcohol level of 240 mg/100 ml or more; M47.9 Spondylosis, unspecified; K21.9 Gastro-esophageal reflux disease without esophagitis; E78.5 Hyperlipidemia, unspecified; Z68.31 Body mass index [BMI] 31.0-31.9, adult; Z59.0 Homelessness; Z79.4 Long term (current) use of insulin; Z86.718 Personal history of other venous thrombosis and embolism; Z89.422 Acquired absence of other left toe(s); W19.XXXA Unspecified fall, initial encounter; Y93.9 Activity, unspecified; Y92.9 Unspecified place or not applicable; Y99.9 Unspecified external cause status
CPT/HCPCS: 71010; 71020; 71260; 73522; 74150; 74160; 74177; 80048; 80053; 80202; 81003; 82150; 82565; 82948; 83690; 83735; 84520; 84999; 85025; 85027; 86900; 86901; 87040; 87070; 87205; 87641; 94010; 94640; 94640 76; 94667; 94668; 94799; 99202; 99281; 99285; G0480; J0696; J1170; J1815; J1885; J1956; J2060; J2270; J2405; J2543; J3370; J7030; J7050

== ENCOUNTER 2016-12-23 20:25 | Inpatient (IN) | payer OTHER ==
[~2016-12-23] VITALS: Ht 193 cm; Wt 110.2 kg
[~2016-12-23 20:25] MED LIST changes: +ARYMO ER15 MG PO; +CEFDINIR300 MG PO; +OXYCODONE-APAP1 EACH PO; +PERCOCET 10/1 TABLET PO; +PERCOCET 7.51 TABLET PO; +RISPERDAL2 MG PO; +TRADJENTA5 MG PO; +XARELTO20 MG PO
[2016-12-23 21:37] LABS: ADD MIUA? NO; BILIRUBIN NEGATIVE; BLOOD NEGATIVE; COLOR YELLOW ((YELLOW)); GLUCOSE (STRIP) >=500; KETONES 5; LEUKOCYTES NEGATIVE; NITRITE NEGATIVE; PROTEIN (STRIP) 30; SPECIFIC GRAVITY 1.024 (1.000-1.030); UCUL ADDED? NO; UROBILINOGEN 0.2 MG/DL (0.2-1.0)
[2016-12-23 21:43] LABS: HEMATOCRIT 49.1 % (38.0-50.0); MCH 28.1 PG (29.0-34.0); MCHC 33.6 G/DL (30.0-36.0); MCV 83.6 FL (86-99); MEAN PLAT.VOLUME 11.2 uM^3 (9.0-12.4); PLATELET COUNT 298 K/uL (156-360); RBC DIS.WIDTH-CV 13.4 % (11.8-14.6); RBC DIS.WIDTH-SD 40.9 % (39-53); RED BLOOD COUNT 5.87 M/uL (4.00-5.50); WHITE BLOOD COUNT 8.2 K/uL (4.1-10.2)
[2016-12-23 21:50] LABS: CHLORIDE 97 mEq/L (99-109); POTASSIUM 3.9 mEq/L (3.7-5.4); SODIUM 135 mEq/L (136-147)
[2016-12-23 21:53] LABS: ANION GAP 21 MEQ/L (2-14)
[2016-12-23 21:55] LABS: GFR ESTIMATE (CALCULATED) > 59 mL/min/
[2016-12-23 21:56] LABS: UREA NITROGEN (BUN) 12 mg/dL (9-23)
[2016-12-23 22:05] LABS: GLUCOSE 523 mg/dL (70-99)
[2016-12-23 22:37] LABS: POINT-OF-CARE METER ID UU13113702
[2016-12-23] MEDS ORDERED: ZUBSOLV 5.7-1.1 EACH SL (23:05)
[2016-12-24] VITALS (14 sets, daily range): BP systolic 133–175; BP diastolic 78–110
[2016-12-24 00:01] LABS: POINT-OF-CARE METER ID UU13113702
[2016-12-24 01:02] LABS: POINT-OF-CARE METER ID UU13113702
[2016-12-24 02:03] LABS: POINT-OF-CARE METER ID UU13113702
[2016-12-24 03:07] LABS: POINT-OF-CARE METER ID UU13113702
[2016-12-24 03:23] LABS: CHLORIDE 105 mEq/L (99-109); POTASSIUM 3.7 mEq/L (3.7-5.4); SODIUM 140 mEq/L (136-147)
[2016-12-24 03:25] LABS: GLUCOSE 169 mg/dL (70-99)
[2016-12-24 03:26] LABS: ANION GAP 12 MEQ/L (2-14)
[2016-12-24 03:29] LABS: GFR ESTIMATE (CALCULATED) > 59 mL/min/
[2016-12-24 03:30] LABS: UREA NITROGEN (BUN) 9 mg/dL (9-23)
[2016-12-24 03:52] LABS: POINT-OF-CARE METER ID UU14162636
[2016-12-24 05:08] LABS: POINT-OF-CARE METER ID UU13113748
[2016-12-24 05:10] LABS: METH RESISTANT S AUREUS PCR NEGATIVE (NEGATIVE)
[2016-12-24 05:41] LABS: PROBE CHECK PASS; SPECIMEN PROCESSING CONTROL PASS
[2016-12-24 06:20] LABS: POINT-OF-CARE METER ID UU13113748
[2016-12-24 07:10] LABS: HEMATOCRIT 42.1 % (38.0-50.0); MCHC 34.2 G/DL (30.0-36.0); MCV 84.7 FL (86-99); MEAN PLAT.VOLUME 11.1 uM^3 (9.0-12.4); PLATELET COUNT 289 K/uL (156-360); RBC DIS.WIDTH-CV 13.6 % (11.8-14.6); RED BLOOD COUNT 4.97 M/uL (4.00-5.50); WHITE BLOOD COUNT 7.6 K/uL (4.1-10.2)
[2016-12-24 07:25] LABS: POINT-OF-CARE METER ID UU13113748
[2016-12-24 07:33] LABS: ALKALINE PHOSPHATASE 81 IU/L (3-129); ANION GAP 11 MEQ/L (2-14); CHLORIDE 101 MEQ/L (99-109); GFR ESTIMATE (CALCULATED) > 59 mL/min/; POTASSIUM 3.7 MEQ/L (3.7-5.4); SAMPLE HEMOLYSIS CHECK 0; SAMPLE ICTERIC CHECK 0; SAMPLE LIPEMIA CHECK 0; SODIUM 135 MEQ/L (136-147); TOTAL BILIRUBIN 0.6 MG/DL (0.0-1.0); UREA NITROGEN (BUN) 9 mg/dL (9-23)
[2016-12-24 07:39] LABS: GLUCOSE 289 mg/dL (70-99)
[2016-12-24 08:27] LABS: POINT-OF-CARE METER ID UU14162636
[2016-12-24 09:36] LABS: POINT-OF-CARE METER ID UU14162636
[2016-12-24 11:45] LABS: POINT-OF-CARE METER ID UU14162636
[2016-12-24 13:44] LABS: POINT-OF-CARE METER ID UU14162636
[2016-12-24 18:05] LABS: POINT-OF-CARE METER ID UU14162636
[2016-12-24 21:31] LABS: POINT-OF-CARE METER ID UU14162636
[2016-12-25 07:00] LABS: ANION GAP 9 MEQ/L (2-14); CHLORIDE 103 MEQ/L (99-109); GFR ESTIMATE (CALCULATED) > 59 mL/min/; SAMPLE HEMOLYSIS CHECK 0; SAMPLE ICTERIC CHECK 0; SAMPLE LIPEMIA CHECK 0; SODIUM 136 MEQ/L (136-147); UREA NITROGEN (BUN) 11 mg/dL (9-23)
[2016-12-25 07:04] LABS: GLUCOSE 442 mg/dL (70-99); POTASSIUM 4.6 MEQ/L (3.7-5.4)
[2016-12-25 07:30] LABS: Estimated Average Glucose 226 mg/dL (70-123)
[2016-12-25 07:31] LABS: HEMOGLOBIN A1c (GLYCOHEMOGLOB) 9.5 % HGB (Below 5.7)
[2016-12-25 12:53] LABS: POINT-OF-CARE METER ID UU13113702
[2016-12-25 16:18] VITALS: BP 153/83
[2016-12-25 17:23] LABS: POINT-OF-CARE METER ID UU13113717
[2016-12-25 21:12] LABS: POINT-OF-CARE METER ID UU14188625
[2016-12-25 23:22] VITALS: BP 144/93
[2016-12-26 07:32] LABS: ANION GAP 10 MEQ/L (2-14); CHLORIDE 104 MEQ/L (99-109); GFR ESTIMATE (CALCULATED) > 59 mL/min/; GLUCOSE 352 mg/dL (70-99); POTASSIUM 4.1 MEQ/L (3.7-5.4); SAMPLE HEMOLYSIS CHECK 0; SAMPLE ICTERIC CHECK 0; SAMPLE LIPEMIA CHECK 0; SODIUM 138 MEQ/L (136-147); UREA NITROGEN (BUN) 10 mg/dL (9-23)
[2016-12-26 08:05] VITALS: BP 148/81
[2016-12-26 08:14] LABS: POINT-OF-CARE METER ID UU14174225
[2016-12-26] MEDS ORDERED: LEVEMIR FL100 UNIT/1 SC (11:56)
[2016-12-26] MEDS ORDERED: NOVOLOG PE100 UNITS/ SC (11:57)
[2016-12-26 12:14] LABS: POINT-OF-CARE METER ID UU14174225
[2016-12-26 17:56] LABS: POINT-OF-CARE METER ID UU14174225
== END 2016-12-26 18:08 | disposition home or self-care (01) | DRG 638 ==
LOC: EME 20:25 → 5SOUTH 12-24 01:13 → EDOF 12-24 01:13 → 4WEST 12-24 03:05 → 5SOUTH 12-24 21:37
PROVIDERS: Emergency Medicine; Internal Medicine; Obstetrics & Gynecology
DX: E13.10 Other specified diabetes mellitus with ketoacidosis without coma (principal); N17.9 Acute kidney failure, unspecified; E11.40 Type 2 diabetes mellitus with diabetic neuropathy, unspecified; K21.9 Gastro-esophageal reflux disease without esophagitis; J44.9 Chronic obstructive pulmonary disease, unspecified; I10 Essential (primary) hypertension; F20.9 Schizophrenia, unspecified; F10.20 Alcohol dependence, uncomplicated; G43.909 Migraine, unspecified, not intractable, without status migrainosus; F17.210 Nicotine dependence, cigarettes, uncomplicated; F31.9 Bipolar disorder, unspecified; Z86.718 Personal history of other venous thrombosis and embolism; Z79.4 Long term (current) use of insulin; Z91.14 Patient's other noncompliance with medication regimen; Z59.0 Homelessness
CPT/HCPCS: 71020; 80048; 80048 91; 80053; 81003; 82010; 82803; 82948; 83036; 83605; 84100; 85027; 85610; 85730; 87070; 87086; 87116; 87205; 87206; 87641; 93971; 94640; 94640 76; 99202; 99281; 99285; J1815; J7030; J7050; J7120

== ENCOUNTER 2017-02-11 01:30 | Inpatient (IN) | payer OTHER ==
[~2017-02-11] VITALS: Ht 193 cm; Wt 103.4 kg
[~2017-02-11 01:30] MED LIST changes: +ZUBSOLV 5.7-1.1 EACH SL
[2017-02-11 02:08] LABS: EOSINOPHIL (%) 0.9 % (0-5); EOSINOPHIL COUNT 0.1 K/uL (0-0.3); HEMATOCRIT 48.2 % (38.0-50.0); IMMATURE GRANULOCYTE (%) 0.3 % (0.0-0.7); LYMPHOCYTE COUNT 2.1 K/uL (1.0-2.8); MCH 28.3 PG (29.0-34.0); MCHC 33.6 G/DL (30.0-36.0); MCV 84.1 FL (86-99); MEAN PLAT.VOLUME 10.9 uM^3 (9.0-12.4); MONOCYTE (%) 5.6 % (3-12); MONOCYTE COUNT 0.5 K/uL (0-0.8); NEUTROPHIL (%) 68.8 % (45-76); PLATELET COUNT 362 K/uL (156-360); RBC DIS.WIDTH-CV 13.4 % (11.8-14.6); RBC DIS.WIDTH-SD 41.1 % (39-53); RED BLOOD COUNT 5.73 M/uL (4.00-5.50); WHITE BLOOD COUNT 8.8 K/uL (4.1-10.2)
[2017-02-11 02:18] LABS: CHLORIDE 95 mEq/L (99-109); SODIUM 130 mEq/L (136-147)
[2017-02-11 02:22] LABS: ANION GAP 20 MEQ/L (2-14)
[2017-02-11 02:24] LABS: GFR ESTIMATE (CALCULATED) > 59 mL/min/
[2017-02-11 02:25] LABS: UREA NITROGEN (BUN) 13 mg/dL (9-23)
[2017-02-11 02:32] LABS: GLUCOSE 448 mg/dL (70-99)
[2017-02-11 03:09] LABS: ADD MIUA? NO; BILIRUBIN NEGATIVE; BLOOD NEGATIVE; COLOR AMBER ((YELLOW)); GLUCOSE (STRIP) >=500; KETONES 80; LEUKOCYTES NEGATIVE; NITRITE NEGATIVE; PROTEIN (STRIP) NEGATIVE; SPECIFIC GRAVITY 1.026 (1.000-1.030); UCUL ADDED? NO; UROBILINOGEN 0.2 MG/DL (0.2-1.0)
[2017-02-11 03:44] LABS: POINT-OF-CARE METER ID UU13113702
[2017-02-11 06:19] LABS: POINT-OF-CARE METER ID UU13113702
[2017-02-11 07:39] LABS: ANION GAP 15 MEQ/L (2-14); CHLORIDE 103 MEQ/L (99-109); POTASSIUM 4.6 MEQ/L (3.7-5.4); SAMPLE HEMOLYSIS CHECK 0; SAMPLE ICTERIC CHECK 0; SAMPLE LIPEMIA CHECK 1; SODIUM 134 MEQ/L (136-147)
[2017-02-11 07:45] LABS: GFR ESTIMATE (CALCULATED) > 59 mL/min/; GLUCOSE 262 mg/dL (70-99); UREA NITROGEN (BUN) 11 mg/dL (9-23)
[2017-02-11 09:08] LABS: POINT-OF-CARE METER ID UU13113717
[2017-02-11 09:15] VITALS: BP 156/92
[2017-02-11 12:00] VITALS: BP 137/74
[2017-02-11 12:48] LABS: POINT-OF-CARE METER ID UU14188625
[2017-02-11] MEDS ORDERED: LISINOPRIL20 MG PO ×2 (15:33→15:46)
[2017-02-11] MEDS ORDERED: GABAPENTIN600 MG PO ×2 (15:33→15:44)
[2017-02-11] MEDS ORDERED: METFORMIN HCL1000 MG PO ×2 (15:38→15:39)
[2017-02-11] MEDS ORDERED: NOVOLOG PE100 UNITS/ SC ×2 (15:40→15:53)
[2017-02-11] MEDS ORDERED: LEVEMIR FL100 UNIT/1 SC (15:42)
[2017-02-11] MEDS ORDERED: ZUBSOLV 5.7-1.1 EACH SL (15:47)
[2017-02-11] MEDS ORDERED: DESYREL 150 MG150 MG PO (15:49)
[2017-02-11] MEDS ORDERED: CLOTRIMAZOLE-BE15 GM TP (15:50)
[2017-02-11] MEDS ORDERED: XARELTO20 MG PO (15:51)
[2017-02-11] MEDS ORDERED: QVAR 80 MCG IN7.3 GM IH (15:59)
[2017-02-11 19:49] VITALS: BP 122/65
[2017-02-11 21:43] LABS: POINT-OF-CARE METER ID UU13113717
[2017-02-12] VITALS: BP 129/75
[2017-02-12 03:52] VITALS: BP 123/69
[2017-02-12 07:02] LABS: HEMATOCRIT 39.3 % (38.0-50.0); MCH 29.3 PG (29.0-34.0); MCHC 34.1 G/DL (30.0-36.0); MCV 85.8 FL (86-99); RBC DIS.WIDTH-CV 13.9 % (11.8-14.6); RBC DIS.WIDTH-SD 43.7 % (39-53); WHITE BLOOD COUNT 6.6 K/uL (4.1-10.2)
[2017-02-12 07:04] LABS: RED BLOOD COUNT 4.58 M/uL (4.00-5.50)
[2017-02-12 07:15] LABS: MEAN PLAT.VOLUME 11.1 uM^3 (9.0-12.4); PLAT.SUFFICIENCY ADEQUATE
[2017-02-12 07:16] LABS: PLATELET COUNT 242 K/uL (156-360)
[2017-02-12 07:22] LABS: ALKALINE PHOSPHATASE 65 IU/L (3-129); ANION GAP 9 MEQ/L (2-14); CHLORIDE 106 MEQ/L (99-109); GFR ESTIMATE (CALCULATED) > 59 mL/min/; GLUCOSE 238 mg/dL (70-99); POTASSIUM 4.4 MEQ/L (3.7-5.4); SAMPLE HEMOLYSIS CHECK 0; SAMPLE ICTERIC CHECK 0; SAMPLE LIPEMIA CHECK 0; SODIUM 136 MEQ/L (136-147); TOTAL BILIRUBIN 0.2 MG/DL (0.0-1.0); UREA NITROGEN (BUN) 11 mg/dL (9-23)
[2017-02-12 08:33] VITALS: BP 157/70
[2017-02-12 11:30] VITALS: BP 147/86
[2017-02-12 12:22] LABS: POINT-OF-CARE METER ID UU14174225
[2017-02-12 12:59] LABS: HIV INDEX 0.09; HIV-1/2 AB/AG COMBO Nonreactive
[2017-02-12] MEDS ORDERED: LEVEMIR FL100 UNIT/1 SC (15:42)
[2017-02-12] MEDS ORDERED: LISINOPRIL20 MG PO (15:42)
[2017-02-12] MEDS ORDERED: VENTOLIN HFA18 GM IH (15:59)
[2017-02-12] MEDS ORDERED: GABAPENTIN600 MG PO (16:00)
[2017-02-12] MEDS ORDERED: DESYREL 150 MG150 MG PO (16:00)
[2017-02-12] MEDS ORDERED: METFORMIN HCL1000 MG PO (16:00)
[2017-02-12] MEDS ORDERED: RISPERDAL2 MG PO (16:00)
[2017-02-12] MEDS ORDERED: QVAR 80 MCG IN7.3 GM IH (16:00)
== END 2017-02-12 19:13 | disposition home or self-care (01) | DRG 639 ==
LOC: EME → EDBD 01:30 → EME 01:30 → EDOF 07:16 → 5SOUTH 07:16 → ENRESERV 07:18 → EDOF 07:47 → 5SOUTH 08:35
PROVIDERS: Emergency Medicine; Hospitalist; Internal Medicine
DX: E13.10 Other specified diabetes mellitus with ketoacidosis without coma (principal); E11.40 Type 2 diabetes mellitus with diabetic neuropathy, unspecified; F10.20 Alcohol dependence, uncomplicated; E86.0 Dehydration; J45.909 Unspecified asthma, uncomplicated; Z91.14 Patient's other noncompliance with medication regimen; R63.4 Abnormal weight loss; K21.9 Gastro-esophageal reflux disease without esophagitis; G43.909 Migraine, unspecified, not intractable, without status migrainosus; E78.5 Hyperlipidemia, unspecified; I10 Essential (primary) hypertension; F41.9 Anxiety disorder, unspecified; F31.9 Bipolar disorder, unspecified; F17.210 Nicotine dependence, cigarettes, uncomplicated; Z79.01 Long term (current) use of anticoagulants; Z79.4 Long term (current) use of insulin; Z83.3 Family history of diabetes mellitus; Z86.718 Personal history of other venous thrombosis and embolism
CPT/HCPCS: 80048; 80048 91; 80053; 81003; 82948; 85025; 85027; 86703; 93970; 94640; 94640 76; 99202; 99281; 99285; J1170; J1815; J7030

== ENCOUNTER → 2017-05-04 | Outpatient (CLI) | payer OTHER ==
[~2017-05-04] VITALS: Ht 193 cm; Wt 104.3 kg
[2017-05-04 10:55] LABS: ANION GAP 16 MEQ/L (2-14); CHLORIDE 97 MEQ/L (99-109); POTASSIUM 4.1 MEQ/L (3.7-5.4); SAMPLE HEMOLYSIS CHECK 0; SAMPLE ICTERIC CHECK 0; SAMPLE LIPEMIA CHECK 0; SODIUM 133 MEQ/L (136-147)
[2017-05-04 11:14] LABS: GFR ESTIMATE (CALCULATED) > 59 mL/min/; UREA NITROGEN (BUN) 7 mg/dL (9-23)
[2017-05-04 11:15] LABS: GLUCOSE 436 mg/dL (70-99)
[2017-05-04 11:54] LABS: BASOPHIL COUNT 0.1 K/uL (0-0.1); CARBON DIOXIDE (BICARBONATE) 24.5 MEQ/L (20-31); EOSINOPHIL (%) 2.1 % (0-5); EOSINOPHIL COUNT 0.1 K/uL (0-0.3); HEMATOCRIT 42.9 % (38.0-50.0); IMMATURE GRANULOCYTE (%) 0.2 % (0.0-0.7); INSTRUMENT ABS NEUTROPHIL CT 3.5 K/uL; LYMPHOCYTE COUNT 1.6 K/uL (1.0-2.8); MCH 30.5 PG (29.0-34.0); MCHC 34.5 G/DL (30.0-36.0); MCV 88.5 FL (86-99); MEAN PLAT.VOLUME 10.9 uM^3 (9.0-12.4); MONOCYTE (%) 10.2 % (3-12); MONOCYTE COUNT 0.6 K/uL (0-0.8); NEUTROPHIL (%) 59.5 % (45-76); NEUTROPHIL COUNT 3.5 K/uL (1.8-6.4); PLATELET COUNT 239 K/uL (156-360); RBC DIS.WIDTH-CV 12.1 % (11.8-14.6); RBC DIS.WIDTH-SD 39.7 % (39-53); RED BLOOD COUNT 4.85 M/uL (4.00-5.50); WHITE BLOOD COUNT 5.8 K/uL (4.1-10.2)
[2017-05-04 13:00] LABS: ADD MIUA? NO; BILIRUBIN NEGATIVE; BLOOD NEGATIVE; COLOR YELLOW ((YELLOW)); GLUCOSE (STRIP) >=500; KETONES 80; LEUKOCYTES NEGATIVE; NITRITE NEGATIVE; PROTEIN (STRIP) NEGATIVE; UCUL ADDED? NO; UROBILINOGEN 0.2 MG/DL (0.2-1.0)
[2017-05-04 13:16] LABS: POINT-OF-CARE METER ID UU13113747
[2017-05-04 14:15] VITALS: BP 133/74
[2017-05-04 16:37] LABS: POINT-OF-CARE METER ID UU13113819
[2017-05-06 09:58] LABS: POINT-OF-CARE METER ID UU14107333
[2017-05-06 10:01] LABS: POINT-OF-CARE METER ID UU13113747
== END | disposition home or self-care (01) ==
LOC: AMB 09:30 → EDSTATUS 09:30 → AMB 09:49 → EME 10:54 → AMB 10:54 → EME 14:24
PROVIDERS: Emergency Medicine; Internal Medicine
PROC: 0DBK8ZX Excision of Ascending Colon, Via Natural or Artificial Opening Endoscopic, Diagnostic (ICD-10-PCS; principal; 2017-05-04)
DX: D12.2 Benign neoplasm of ascending colon (principal); K57.30 Diverticulosis of large intestine without perforation or abscess without bleeding; K64.8 Other hemorrhoids; E11.65 Type 2 diabetes mellitus with hyperglycemia; T38.3X6A Underdosing of insulin and oral hypoglycemic [antidiabetic] drugs, initial encounter; Z91.128 Patient's intentional underdosing of medication regimen for other reason; R05 Cough; J98.01 Acute bronchospasm; F17.200 Nicotine dependence, unspecified, uncomplicated; F10.10 Alcohol abuse, uncomplicated; F19.10 Other psychoactive substance abuse, uncomplicated; F31.9 Bipolar disorder, unspecified; F41.9 Anxiety disorder, unspecified; E11.42 Type 2 diabetes mellitus with diabetic polyneuropathy; J44.9 Chronic obstructive pulmonary disease, unspecified; I10 Essential (primary) hypertension; E78.00 Pure hypercholesterolemia, unspecified; M06.9 Rheumatoid arthritis, unspecified; Z86.718 Personal history of other venous thrombosis and embolism; Z79.4 Long term (current) use of insulin; Z79.01 Long term (current) use of anticoagulants; Z79.82 Long term (current) use of aspirin; Z60.2 Problems related to living alone
CPT/HCPCS: 71020; 80048; 81003; 82803; 82948; 83605; 85025; 88305; 93005; 94640; J2250; J7030

== ENCOUNTER 2017-06-27 10:11 | Inpatient (IN) | payer OTHER ==
[~2017-06-27] VITALS: Ht 193 cm; Wt 83.0 kg
[2017-06-27] VITALS (9 sets, daily range): BP systolic 115–164; BP diastolic 69–101
[2017-06-27 10:51] LABS: HEMATOCRIT 57.6 % (38.0-50.0); HEMOGLOBIN 19.1 G/DL (12.5-16.6); MCH 30.6 PG (29.0-34.0); MCHC 33.2 G/DL (30.0-36.0); MCV 92.2 FL (86-99); PLATELET COUNT 387 K/uL (156-360); RBC DIS.WIDTH-CV 12.1 % (11.8-14.6); RBC DIS.WIDTH-SD 41.2 % (39-53); RED BLOOD COUNT 6.25 M/uL (4.00-5.50); WHITE BLOOD COUNT 12.7 K/uL (4.1-10.2)
[2017-06-27 11:02] LABS: ALBUMIN 5.1 g/dL (3.2-4.8); CHLORIDE 92 mEq/L (99-109); POTASSIUM 5.2 mEq/L (3.7-5.4); SODIUM 131 mEq/L (136-147)
[2017-06-27 11:03] LABS: MAGNESIUM 2.8 mg/dL (1.3-2.7)
[2017-06-27 11:05] LABS: TOTAL PROTEIN 9.2 g/dL (6.4-8.3)
[2017-06-27 11:06] LABS: TOTAL BILIRUBIN 0.3 mg/dL (0.0-1.0)
[2017-06-27 11:08] LABS: ALKALINE PHOSPHATASE 117 IU/L (3-129); CREATININE 2.9 mg/dL (0.6-1.3); GFR ESTIMATE (CALCULATED) 30 mL/min/ (58.99-99999); PHOSPHORUS 9.5 mg/dL (2.5-4.9)
[2017-06-27 11:09] LABS: UREA NITROGEN (BUN) 23 mg/dL (9-23)
[2017-06-27 11:10] LABS: AST (GOT) 9 IU/L (2-34)
[2017-06-27 11:11] LABS: ALT (GPT) 8 IU/L (3-49)
[2017-06-27 11:12] LABS: LIPASE 22 U/L (1.0-51.0); TROP-I INTERPRETATION NEGATIVE; TROPONIN-I < 0.01 ng/mL (0.0-0.30)
[2017-06-27 11:21] LABS: GLUCOSE 701 mg/dL (70-99)
[2017-06-27 11:51] LABS: VENOUS PCO2 19 mm Hg (41-51)
[2017-06-27 12:04] LABS: POTASSIUM 4.6 mEq/L (3.7-5.4); SODIUM 137 mEq/L (136-147)
[2017-06-27 12:27] LABS: CREATININE 2.7 mg/dL (0.6-1.3); GFR ESTIMATE (CALCULATED) 32 mL/min/ (58.99-99999)
[2017-06-27 12:28] LABS: CHLORIDE 102 mEq/L (99-109); GLUCOSE 651 mg/dL (70-99); UREA NITROGEN (BUN) 23 mg/dL (9-23)
[2017-06-27 13:21] LABS: APPEARANCE CLEAR ((CLEAR)); BILIRUBIN NEGATIVE; BLOOD SMALL; COLOR YELLOW ((YELLOW)); GLUCOSE (STRIP) >=500; KETONES 80; LEUKOCYTES NEGATIVE; NITRITE NEGATIVE; PROTEIN (STRIP) 100; SPECIFIC GRAVITY 1.024 (1.000-1.030); UROBILINOGEN 0.2 MG/DL (0.2-1.0)
[2017-06-27 13:24] LABS: BACTERIA RARE /HPF; EPITHELIAL CELLS RARE /HPF; HYALINE CASTS 0-5 /LPF; MUCUS TRACE /LPF; RED BLOOD CELLS 0-5 /HPF (0-5); WHITE BLOOD CELLS 0-5 /HPF (0-5)
[2017-06-27 13:32] LABS: HEMOGLOBIN A1c (GLYCOHEMOGLOB) 15.1 % HGB (Below 5.7)
[2017-06-27] MEDS ORDERED: VENTOLIN HFA18 GM IH (14:27)
[2017-06-27] MEDS ORDERED: LO-DOSE ASPIRIN81 M1 PO (14:30)
[2017-06-27] MEDS ORDERED: LIPITOR40 MG PO (14:30)
[2017-06-27] MEDS ORDERED: TRADJENTA5 MG PO (14:30)
[2017-06-27] MEDS ORDERED: ROBAXIN500 MG PO (14:30)
[2017-06-27] MEDS ORDERED: MUCINEX1200 MG PO (14:31)
[2017-06-27 16:42] LABS: CHLORIDE 99 MEQ/L (99-109); PHOSPHORUS 4.2 mg/dL (2.5-4.9); POTASSIUM 4.8 MEQ/L (3.7-5.4); SODIUM 134 MEQ/L (136-147); UREA NITROGEN (BUN) 24 mg/dL (9-23)
[2017-06-27 16:49] LABS: CREATININE 1.9 MG/DL (0.6-1.3); GFR ESTIMATE (CALCULATED) 49 mL/min/ (58.99-99999); GLUCOSE 440 mg/dL (70-99)
[2017-06-27 16:52] LABS: CARBON DIOXIDE (BICARBONATE) < 10.0 MEQ/L (20-31)
[2017-06-27 20:18] LABS: CHLORIDE 106 MEQ/L (99-109); CREATININE 1.2 MG/DL (0.6-1.3); GFR ESTIMATE (CALCULATED) > 59 mL/min/ (58.99-99999); GLUCOSE 231 mg/dL (70-99); PHOSPHORUS 2.5 mg/dL (2.5-4.9); POTASSIUM 4.3 MEQ/L (3.7-5.4); SODIUM 136 MEQ/L (136-147); UREA NITROGEN (BUN) 18 mg/dL (9-23)
[2017-06-28] VITALS (22 sets, daily range): BP systolic 82–159; BP diastolic 41–114
[2017-06-28 00:53] LABS: CHLORIDE 109 mEq/L (99-109); POTASSIUM 4.2 mEq/L (3.7-5.4); SODIUM 133 mEq/L (136-147)
[2017-06-28 00:54] LABS: GLUCOSE 168 mg/dL (70-99)
[2017-06-28 00:58] LABS: CREATININE 1.3 mg/dL (0.6-1.3); GFR ESTIMATE (CALCULATED) > 59 mL/min/ (58.99-99999)
[2017-06-28 00:59] LABS: UREA NITROGEN (BUN) 18 mg/dL (9-23)
[2017-06-28 01:00] LABS: PHOSPHORUS 2.9 mg/dL (2.5-4.9)
[2017-06-28 05:34] LABS: CHLORIDE 109 mEq/L (99-109); POTASSIUM 3.7 mEq/L (3.7-5.4); SODIUM 134 mEq/L (136-147)
[2017-06-28 05:36] LABS: GLUCOSE 154 mg/dL (70-99)
[2017-06-28 05:40] LABS: CREATININE 1.2 mg/dL (0.6-1.3); GFR ESTIMATE (CALCULATED) > 59 mL/min/ (58.99-99999); PHOSPHORUS 2.6 mg/dL (2.5-4.9)
[2017-06-28 05:41] LABS: UREA NITROGEN (BUN) 17 mg/dL (9-23)
[2017-06-28 08:39] LABS: CHLORIDE 107 MEQ/L (99-109); POTASSIUM 3.9 MEQ/L (3.7-5.4); SODIUM 136 MEQ/L (136-147)
[2017-06-28 08:45] LABS: GFR ESTIMATE (CALCULATED) > 59 mL/min/ (58.99-99999); PHOSPHORUS 2.5 mg/dL (2.5-4.9); UREA NITROGEN (BUN) 16 mg/dL (9-23)
[2017-06-28 08:49] LABS: GLUCOSE 102 mg/dL (70-99)
[2017-06-28 09:17] LABS: BASOPHIL (%) 0.2 % (0-1); EOSINOPHIL (%) 0.1 % (0-5); HEMATOCRIT 43.1 % (38.0-50.0); IMMATURE GRANULOCYTE (%) 0.2 % (0.0-0.7); LYMPHOCYTE COUNT 1.7 K/uL (1.0-2.8); MCH 30.4 PG (29.0-34.0); MONOCYTE (%) 8.2 % (3-12); MONOCYTE COUNT 1.3 K/uL (0-0.8); NEUTROPHIL (%) 81.3 % (45-76); NEUTROPHIL COUNT 13.3 K/uL (1.8-6.4); RBC DIS.WIDTH-CV 12.1 % (11.8-14.6); RBC DIS.WIDTH-SD 38.5 % (39-53); WHITE BLOOD COUNT 16.4 K/uL (4.1-10.2)
[2017-06-28 09:33] LABS: HEMOGLOBIN 15.1 G/DL (12.5-16.6); MCV 86.7 FL (86-99); RED BLOOD COUNT 4.97 M/uL (4.00-5.50)
[2017-06-28 09:38] LABS: PLAT.SUFFICIENCY ADEQUATE
[2017-06-28 09:39] LABS: PLATELET COUNT 257 K/uL (156-360)
[2017-06-28 15:26] LABS: CHLORIDE 102 MEQ/L (99-109); CREATININE 1.4 MG/DL (0.6-1.3); GFR ESTIMATE (CALCULATED) > 59 mL/min/ (58.99-99999); GLUCOSE 459 mg/dL (70-99); MAGNESIUM 1.6 mg/dl (1.3-2.7); PHOSPHORUS 2.5 mg/dL (2.5-4.9); POTASSIUM 4.2 MEQ/L (3.7-5.4); UREA NITROGEN (BUN) 21 mg/dL (9-23)
[2017-06-28 15:27] LABS: SODIUM 128 MEQ/L (136-147)
[2017-06-29] VITALS (16 sets, daily range): BP systolic 88–126; BP diastolic 51–79
[2017-06-29 08:25] LABS: CHLORIDE 105 MEQ/L (99-109); POTASSIUM 3.6 MEQ/L (3.7-5.4); UREA NITROGEN (BUN) 14 mg/dL (9-23)
[2017-06-29 08:32] LABS: CREATININE 0.9 MG/DL (0.6-1.3); GFR ESTIMATE (CALCULATED) > 59 mL/min/ (58.99-99999); GLUCOSE 152 mg/dL (70-99); SODIUM 135 MEQ/L (136-147)
[2017-06-30 03:35] VITALS: BP 122/75
[2017-06-30 08:29] VITALS: BP 129/78
[2017-06-30] MEDS ORDERED: LEVEMIR FL100 UNIT/1 SC (11:38)
[2017-06-30] MEDS ORDERED: TEST STRIPS MC (11:39)
[2017-06-30] MEDS ORDERED: [UNRECOGNIZED DRUG - SUPPLY] MC (11:39)
[2017-06-30 11:46] VITALS: BP 130/80
== END 2017-06-30 13:20 | disposition home or self-care (01) | DRG 638 ==
LOC: EME 10:11 → EDOF 13:39 → 4WEST 13:39 → ENRESERV 13:46 → 4WEST 15:45 → ENRESERV 06-29 12:23 → 5EAST 06-29 21:59
PROVIDERS: Emergency Medicine; Hospitalist; Internal Medicine Critical Care Medicine; Specialist
DX: E11.10 Type 2 diabetes mellitus with ketoacidosis without coma (principal); N17.9 Acute kidney failure, unspecified; E86.0 Dehydration; E11.42 Type 2 diabetes mellitus with diabetic polyneuropathy; I10 Essential (primary) hypertension; E78.5 Hyperlipidemia, unspecified; J45.909 Unspecified asthma, uncomplicated; F32.9 Major depressive disorder, single episode, unspecified; F41.9 Anxiety disorder, unspecified; L40.9 Psoriasis, unspecified; F17.200 Nicotine dependence, unspecified, uncomplicated; Z79.4 Long term (current) use of insulin; Z79.82 Long term (current) use of aspirin; Z91.14 Patient's other noncompliance with medication regimen
CPT/HCPCS: 71045; 80048; 80048 91; 80053; 81003; 82803; 82948; 83036; 83605; 83690; 83735; 83930; 84100; 84484; 85025; 85027; 87040; 87086; 87641; 93005; 94640; 94640 76; 94760; 99202; 99281; 99285; J0360; J0572; J1644; J1815; J2270; J2405; J7030; J7050; J7120; S0028

== ENCOUNTER 2017-08-18 04:48 | Emergency (ER) | payer OTHER ==
[~2017-08-18] VITALS: Ht 193 cm; Wt 98.6 kg
[~2017-08-18 04:48] MED LIST changes: +MUCINEX1200 MG PO
[2017-08-18 06:38] LABS: HEMATOCRIT 42.9 % (38.0-50.0); HEMOGLOBIN 15.1 G/DL (12.5-16.6); MCH 32.4 PG (29.0-34.0); MCHC 35.2 G/DL (30.0-36.0); MCV 92.1 FL (86-99); PLATELET COUNT 249 K/uL (156-360); RBC DIS.WIDTH-CV 12.6 % (11.8-14.6); RBC DIS.WIDTH-SD 42.7 % (39-53); RED BLOOD COUNT 4.66 M/uL (4.00-5.50); WHITE BLOOD COUNT 12.4 K/uL (4.1-10.2)
[2017-08-18 06:41] LABS: APPEARANCE CLOUDY ((CLEAR)); BILIRUBIN NEGATIVE; BLOOD LARGE; COLOR AMBER ((YELLOW)); GLUCOSE (STRIP) >=500; KETONES NEGATIVE; LEUKOCYTES LARGE; NITRITE POSITIVE; PROTEIN (STRIP) >=500; SPECIFIC GRAVITY 1.018 (1.000-1.030)
[2017-08-18 06:58] LABS: CHLORIDE 104 mEq/L (99-109); POTASSIUM 3.8 mEq/L (3.7-5.4); SODIUM 137 mEq/L (136-147)
[2017-08-18 07:00] LABS: BACTERIA 2+ /HPF; EPITHELIAL CELLS RARE /HPF; MUCUS NONE SEEN /LPF; RED BLOOD CELLS TNTC /HPF (0-5); UCUL ADDED? YES; WHITE BLOOD CELLS TNTC /HPF (0-5)
[2017-08-18 07:00] LABS: GLUCOSE 242 mg/dL (70-99)
[2017-08-18 07:01] LABS: TOTAL PROTEIN 7.1 g/dL (6.4-8.3)
[2017-08-18 07:02] LABS: TOTAL BILIRUBIN 0.6 mg/dL (0.0-1.0)
[2017-08-18 07:04] LABS: ALKALINE PHOSPHATASE 78 IU/L (3-129); GFR ESTIMATE (CALCULATED) > 59 mL/min/ (58.99-99999)
[2017-08-18 07:05] LABS: UREA NITROGEN (BUN) 9 mg/dL (9-23)
[2017-08-18 07:06] LABS: AST (GOT) 10 IU/L (2-34)
[2017-08-18 07:07] LABS: ALT (GPT) 6 IU/L (3-49)
[2017-08-18] MEDS ORDERED: CIPRO250 MG PO (07:58)
[2017-08-18] MEDS ORDERED: FLOMAX0.4 MG PO (07:58)
[2017-08-18] MEDS ORDERED: ZOFRAN4 MG PO (08:00)
[2017-08-18 08:30] VITALS: BP 131/86
== END 2017-08-18 08:41 | disposition home or self-care (01) ==
LOC: EME 04:48
PROVIDERS: Nurse Practitioner Family
DX: N39.0 Urinary tract infection, site not specified (principal); E11.9 Type 2 diabetes mellitus without complications; F17.200 Nicotine dependence, unspecified, uncomplicated; Z87.440 Personal history of urinary (tract) infections; K21.9 Gastro-esophageal reflux disease without esophagitis; F32.9 Major depressive disorder, single episode, unspecified; F41.9 Anxiety disorder, unspecified; Z79.82 Long term (current) use of aspirin
CPT/HCPCS: 71046; 74176; 80053; 81003; 85027; 87077; 87086; 87186; 99281; 99285; J0696; J1885; J7030

== ENCOUNTER 2017-08-23 16:51 | Emergency (ER) | payer OTHER ==
[~2017-08-23] VITALS: Ht 193 cm; Wt 95.2 kg
[~2017-08-23 16:51] MED LIST changes: +CIPRO250 MG PO; +FLOMAX0.4 MG PO; +ZOFRAN4 MG PO
[2017-08-23 17:58] LABS: HEMATOCRIT 45.3 % (38.0-50.0); HEMOGLOBIN 15.5 G/DL (12.5-16.6); MCH 31.7 PG (29.0-34.0); MCHC 34.2 G/DL (30.0-36.0); MCV 92.6 FL (86-99); RBC DIS.WIDTH-CV 12.5 % (11.8-14.6); RBC DIS.WIDTH-SD 42.8 % (39-53); RED BLOOD COUNT 4.89 M/uL (4.00-5.50); WHITE BLOOD COUNT 10.6 K/uL (4.1-10.2)
[2017-08-23 18:04] LABS: ALBUMIN 4.4 g/dL (3.2-4.8); CHLORIDE 102 mEq/L (99-109); POTASSIUM 3.9 mEq/L (3.7-5.4); SODIUM 136 mEq/L (136-147)
[2017-08-23 18:06] LABS: GLUCOSE 383 mg/dL (70-99)
[2017-08-23 18:07] LABS: TOTAL PROTEIN 7.7 g/dL (6.4-8.3)
[2017-08-23 18:08] LABS: PLATELET COUNT 443 K/uL (156-360)
[2017-08-23 18:10] LABS: ALKALINE PHOSPHATASE 81 IU/L (3-129); CREATININE 1.2 mg/dL (0.6-1.3); GFR ESTIMATE (CALCULATED) > 59 mL/min/ (58.99-99999)
[2017-08-23 18:11] LABS: UREA NITROGEN (BUN) 7 mg/dL (9-23)
[2017-08-23 18:11] LABS: APPEARANCE CLEAR ((CLEAR)); BILIRUBIN NEGATIVE; BLOOD SMALL; COLOR STRAW ((YELLOW)); GLUCOSE (STRIP) >=500; KETONES NEGATIVE; LEUKOCYTES LARGE; NITRITE NEGATIVE; PROTEIN (STRIP) NEGATIVE; SPECIFIC GRAVITY 1.003 (1.000-1.030); UROBILINOGEN 0.2 MG/DL (0.2-1.0)
[2017-08-23 18:12] LABS: AST (GOT) 12 IU/L (2-34)
[2017-08-23 18:13] LABS: ALT (GPT) 5 IU/L (3-49)
[2017-08-23 18:16] LABS: BACTERIA RARE /HPF; EPITHELIAL CELLS RARE /HPF; MUCUS NONE SEEN /LPF; RED BLOOD CELLS 0-5 /HPF (0-5); UCUL ADDED? YES; WHITE BLOOD CELLS 20-30 /HPF (0-5)
[2017-08-23 18:18] LABS: TOTAL BILIRUBIN 0.3 mg/dL (0.0-1.0)
[2017-08-23 19:09] VITALS: BP 141/86
[2017-08-23] MEDS ORDERED: MACROBID100 MG PO (19:09)
== END 2017-08-23 19:39 | disposition home or self-care (01) ==
LOC: EME 16:51
DX: N39.0 Urinary tract infection, site not specified (principal); B96.20 Unspecified Escherichia coli [E. coli] as the cause of diseases classified elsewhere; Z16.23 Resistance to quinolones and fluoroquinolones; E11.9 Type 2 diabetes mellitus without complications; Z79.84 Long term (current) use of oral hypoglycemic drugs; K21.9 Gastro-esophageal reflux disease without esophagitis; F41.9 Anxiety disorder, unspecified; F31.9 Bipolar disorder, unspecified; Z79.82 Long term (current) use of aspirin; F17.200 Nicotine dependence, unspecified, uncomplicated
CPT/HCPCS: 80053; 81003; 85027; 87077; 87086; 87186; 99281; 99284

== ENCOUNTER 2017-09-24 19:41 | Observation (INO) | payer OTHER ==
[~2017-09-24] VITALS: Ht 188 cm; Wt 91.1 kg
[~2017-09-24 19:41] MED LIST changes: +MACROBID100 MG PO
[2017-09-24 21:50] LABS: HEMATOCRIT 45.2 % (38.0-50.0); HEMOGLOBIN 16.6 G/DL (12.5-16.6); MCHC 36.7 G/DL (30.0-36.0); MCV 87.1 FL (86-99); PLATELET COUNT 307 K/uL (156-360); RBC DIS.WIDTH-CV 11.7 % (11.8-14.6); RBC DIS.WIDTH-SD 37.4 % (39-53); RED BLOOD COUNT 5.19 M/uL (4.00-5.50); WHITE BLOOD COUNT 9.4 K/uL (4.1-10.2)
[2017-09-24 21:53] LABS: CARBON DIOXIDE (BICARBONATE) 22.1 MEQ/L (20-31)
[2017-09-24 22:03] LABS: CHLORIDE 89 mEq/L (99-109); POTASSIUM 4.8 mEq/L (3.7-5.4); SODIUM 130 mEq/L (136-147)
[2017-09-24 22:09] LABS: CREATININE 1.4 mg/dL (0.6-1.3); GFR ESTIMATE (CALCULATED) > 59 mL/min/ (58.99-99999); GLUCOSE 577 mg/dL (70-99); UREA NITROGEN (BUN) 13 mg/dL (9-23)
[2017-09-24 23:16] LABS: APPEARANCE CLEAR ((CLEAR)); BILIRUBIN NEGATIVE; BLOOD SMALL; COLOR STRAW ((YELLOW)); GLUCOSE (STRIP) >=500; KETONES 20; LEUKOCYTES NEGATIVE; NITRITE NEGATIVE; PROTEIN (STRIP) NEGATIVE; SPECIFIC GRAVITY 1.029 (1.000-1.030); UROBILINOGEN 0.2 MG/DL (0.2-1.0)
[2017-09-24 23:18] LABS: BACTERIA NONE SEEN /HPF; EPITHELIAL CELLS NONE SEEN /HPF; MUCUS TRACE /LPF; RED BLOOD CELLS 0-5 /HPF (0-5); UCUL ADDED? NO; WHITE BLOOD CELLS 0-5 /HPF (0-5)
[2017-09-25 01:12] LABS: CARBON DIOXIDE (BICARBONATE) 20.5 MEQ/L (20-31)
[2017-09-25 01:19] LABS: CHLORIDE 95 mEq/L (99-109); POTASSIUM 4.9 mEq/L (3.7-5.4); SODIUM 129 mEq/L (136-147)
[2017-09-25 01:25] LABS: CREATININE 1.2 mg/dL (0.6-1.3); GFR ESTIMATE (CALCULATED) > 59 mL/min/ (58.99-99999)
[2017-09-25 01:26] LABS: GLUCOSE 741 mg/dL (70-99); UREA NITROGEN (BUN) 13 mg/dL (9-23)
[2017-09-25 09:53] VITALS: BP 136/77
[2017-09-25 10:03] LABS: SERUM ETHYL ALCOHOL < 10 mg/dL
[2017-09-25 10:46] LABS: HEMOGLOBIN A1c (GLYCOHEMOGLOB) 13.6 % (Below 5.7)
[2017-09-25 11:32] VITALS: BP 130/78
[2017-09-25 15:37] VITALS: BP 140/69
[2017-09-25 20:00] VITALS: BP 118/58
[2017-09-25 23:32] VITALS: BP 123/63
[2017-09-26 04:31] VITALS: BP 108/71
[2017-09-26 06:36] LABS: BASOPHIL (%) 0.6 % (0-1); EOSINOPHIL (%) 1.4 % (0-5); EOSINOPHIL COUNT 0.1 K/uL (0-0.3); HEMATOCRIT 34.9 % (38.0-50.0); IMMATURE GRANULOCYTE (%) 0.2 % (0.0-0.7); LYMPHOCYTE (%) 38.8 % (15-42); MCV 88.6 FL (86-99); MONOCYTE (%) 10.9 % (3-12); MONOCYTE COUNT 0.6 K/uL (0-0.8); NEUTROPHIL (%) 48.1 % (45-76); NEUTROPHIL COUNT 2.5 K/uL (1.8-6.4); RBC DIS.WIDTH-CV 11.8 % (11.8-14.6); RBC DIS.WIDTH-SD 38.1 % (39-53); WHITE BLOOD COUNT 5.2 K/uL (4.1-10.2)
[2017-09-26 06:38] LABS: TROP-I INTERPRETATION NEGATIVE; TROPONIN-I 0.02 ng/mL (0.0-0.30)
[2017-09-26 06:41] LABS: HEMOGLOBIN 12.2 G/DL (12.5-16.6); RED BLOOD COUNT 3.94 M/uL (4.00-5.50)
[2017-09-26 06:45] LABS: CHLORIDE 103 MEQ/L (99-109); UREA NITROGEN (BUN) 11 mg/dL (9-23)
[2017-09-26 06:46] LABS: CREATININE 0.7 MG/DL (0.6-1.3); GFR ESTIMATE (CALCULATED) > 59 mL/min/ (58.99-99999); GLUCOSE 156 mg/dL (70-99); POTASSIUM 3.5 MEQ/L (3.7-5.4); SODIUM 137 MEQ/L (136-147)
[2017-09-26 06:51] LABS: PLAT.SUFFICIENCY ADEQUATE; PLATELET COUNT 195 K/uL (156-360)
[2017-09-26 08:10] VITALS: BP 115/64
[2017-09-26 11:19] VITALS: BP 105/59
[2017-09-26] MEDS ORDERED: GLUCOMETER MC (11:47)
[2017-09-26] MEDS ORDERED: TEST STRIPS MC (11:47)
[2017-09-26] MEDS ORDERED: [UNRECOGNIZED DRUG - SUPPLY] MC (11:47)
[2017-09-26] MEDS ORDERED: LISINOPRIL20 MG PO (12:03)
[2017-09-26] MEDS ORDERED: VENTOLIN HFA18 GM IH (12:03)
[2017-09-26] MEDS ORDERED: LO-DOSE ASPIRIN81 M1 PO (12:03)
[2017-09-26] MEDS ORDERED: LIPITOR40 MG PO (12:03)
[2017-09-26] MEDS ORDERED: DESYREL 150 MG150 MG PO (12:04)
[2017-09-26] MEDS ORDERED: GABAPENTIN600 MG PO (12:04)
[2017-09-26] MEDS ORDERED: RISPERDAL2 MG PO (12:04)
[2017-09-26] MEDS ORDERED: MUCINEX1200 MG PO (12:05)
[2017-09-26] MEDS ORDERED: QVAR 80 MCG IN7.3 GM IH (12:05)
[2017-09-26] MEDS ORDERED: ZOFRAN4 MG PO (12:05)
[2017-09-26] MEDS ORDERED: METFORMIN HCL1000 MG PO (12:05)
[2017-09-26] MEDS ORDERED: LEVEMIR FL100 UNIT/1 SC (12:06)
== END 2017-09-26 15:27 | disposition home or self-care (01) ==
LOC: EME 19:41 → EDOF 09-25 05:59 → 5EAST 09-25 05:59 → EDOF 09-25 05:59 → ENRESERV 09-25 06:02 → 5EAST 09-25 08:47 → ENPENDDIS 09-26 → 5EAST 09-26 15:27
PROVIDERS: Hospitalist; Internal Medicine; Physician Assistant; Physician Assistant Medical
DX: E11.65 Type 2 diabetes mellitus with hyperglycemia (principal); E11.10 Type 2 diabetes mellitus with ketoacidosis without coma; E11.40 Type 2 diabetes mellitus with diabetic neuropathy, unspecified; R35.8 Other polyuria; Z91.19 Patient's noncompliance with other medical treatment and regimen; E87.6 Hypokalemia; I10 Essential (primary) hypertension; E78.5 Hyperlipidemia, unspecified; F10.10 Alcohol abuse, uncomplicated; F41.9 Anxiety disorder, unspecified; G43.909 Migraine, unspecified, not intractable, without status migrainosus; F32.9 Major depressive disorder, single episode, unspecified; F17.200 Nicotine dependence, unspecified, uncomplicated; Z79.4 Long term (current) use of insulin; N40.0 Benign prostatic hyperplasia without lower urinary tract symptoms; K21.9 Gastro-esophageal reflux disease without esophagitis; G89.29 Other chronic pain
CPT/HCPCS: 80048; 80048 91; 81003; 82010; 82803; 82948; 83036; 83605; 84484; 85025; 85027; 87040; 93005; 94640; 94640 76; 99281; 99285; G0378; G0480; J0574; J1644; J1815; J7030; J7120

== ENCOUNTER 2017-11-27 07:53 | Emergency (ER) | payer OTHER ==
[~2017-11-27] VITALS: Ht 193 cm; Wt 90.2 kg
[2017-11-27 08:50] LABS: BASOPHIL (%) 0.7 % (0-1); BASOPHIL COUNT 0.1 K/uL (0-0.1); EOSINOPHIL (%) 3.1 % (0-5); EOSINOPHIL COUNT 0.2 K/uL (0-0.3); HEMATOCRIT 42.6 % (38.0-50.0); HEMOGLOBIN 14.5 G/DL (12.5-16.6); IMMATURE GRANULOCYTE (%) 0.6 % (0.0-0.7); LYMPHOCYTE (%) 30.6 % (15-42); LYMPHOCYTE COUNT 2.1 K/uL (1.0-2.8); MCH 32.4 PG (29.0-34.0); MCV 95.1 FL (86-99); MONOCYTE (%) 8.8 % (3-12); MONOCYTE COUNT 0.6 K/uL (0-0.8); NEUTROPHIL (%) 56.2 % (45-76); NEUTROPHIL COUNT 3.8 K/uL (1.8-6.4); PLATELET COUNT 317 K/uL (156-360); RBC DIS.WIDTH-CV 13.1 % (11.8-14.6); RBC DIS.WIDTH-SD 45.9 % (39-53); RED BLOOD COUNT 4.48 M/uL (4.00-5.50); WHITE BLOOD COUNT 6.8 K/uL (4.1-10.2)
[2017-11-27 08:58] LABS: CARBON DIOXIDE (BICARBONATE) 26.7 MEQ/L (20-31)
[2017-11-27 09:04] LABS: ALBUMIN 3.8 g/dL (3.2-4.8); CHLORIDE 107 mEq/L (99-109); POTASSIUM 3.9 mEq/L (3.7-5.4); SODIUM 141 mEq/L (136-147)
[2017-11-27 09:07] LABS: GLUCOSE 176 mg/dL (70-99); TOTAL PROTEIN 6.3 g/dL (6.4-8.3)
[2017-11-27 09:09] LABS: TOTAL BILIRUBIN 0.3 mg/dL (0.0-1.0)
[2017-11-27 09:10] LABS: ALKALINE PHOSPHATASE 51 IU/L (3-129); CREATININE 0.8 mg/dL (0.6-1.3); GFR ESTIMATE (CALCULATED) > 59 mL/min/ (58.99-99999)
[2017-11-27 09:11] LABS: UREA NITROGEN (BUN) 6 mg/dL (9-23)
[2017-11-27 09:12] LABS: AST (GOT) 6 IU/L (2-34)
[2017-11-27 09:13] LABS: ALT (GPT) 4 IU/L (3-49); CREATINE KINASE 38 IU/L (1-294); TOTAL CK 38 IU/L (1-294)
[2017-11-27 09:14] LABS: CK-MB 0.7 ng/mL (0.0-4.9); CKMB RELATIVE INDEX 1.8 (0.0-3.9)
[2017-11-27 09:14] LABS: APPEARANCE CLEAR ((CLEAR)); BILIRUBIN NEGATIVE; BLOOD NEGATIVE; COLOR COLORLESS ((YELLOW)); GLUCOSE (STRIP) 50; KETONES NEGATIVE; LEUKOCYTES NEGATIVE; NITRITE NEGATIVE; PROTEIN (STRIP) NEGATIVE; SPECIFIC GRAVITY 1.002 (1.000-1.030); UROBILINOGEN 0.2 MG/DL (0.2-1.0)
[2017-11-27 10:38] VITALS: BP 160/96
[2017-11-27] MEDS ORDERED: MOTRIN800 MG PO (10:42)
== END 2017-11-27 10:58 | disposition home or self-care (01) ==
LOC: EME 07:53
PROVIDERS: Emergency Medicine
DX: M79.1 Myalgia (principal); E11.40 Type 2 diabetes mellitus with diabetic neuropathy, unspecified; K21.9 Gastro-esophageal reflux disease without esophagitis; F31.9 Bipolar disorder, unspecified; F41.9 Anxiety disorder, unspecified; F32.9 Major depressive disorder, single episode, unspecified; F17.200 Nicotine dependence, unspecified, uncomplicated; Z88.1 Allergy status to other antibiotic agents
CPT/HCPCS: 71045; 80053; 81003; 82010; 82550; 82553; 82803; 85025; 99281; 99285; J1885; J7030

== ENCOUNTER 2018-01-25 01:11 | Emergency (ER) | payer OTHER ==
[~2018-01-25] VITALS: Ht 185.4 cm; Wt 85.0 kg
[~2018-01-25 01:11] MED LIST changes: +MOTRIN800 MG PO
[2018-01-25 02:24] LABS: BASOPHIL (%) 0.4 % (0-1); BASOPHIL COUNT 0.1 K/uL (0-0.1); EOSINOPHIL (%) 0.2 % (0-5); HEMATOCRIT 44.1 % (38.0-50.0); HEMOGLOBIN 15.2 G/DL (12.5-16.6); IMMATURE GRANULOCYTE (%) 0.2 % (0.0-0.7); LYMPHOCYTE (%) 26.7 % (15-42); LYMPHOCYTE COUNT 3.4 K/uL (1.0-2.8); MCH 32.1 PG (29.0-34.0); MCHC 34.5 G/DL (30.0-36.0); MONOCYTE (%) 8.2 % (3-12); NEUTROPHIL (%) 64.3 % (45-76); NEUTROPHIL COUNT 8.1 K/uL (1.8-6.4); PLATELET COUNT 319 K/uL (156-360); RBC DIS.WIDTH-CV 11.9 % (11.8-14.6); RBC DIS.WIDTH-SD 40.6 % (39-53); RED BLOOD COUNT 4.74 M/uL (4.00-5.50); WHITE BLOOD COUNT 12.6 K/uL (4.1-10.2)
[2018-01-25 02:37] LABS: AMYLASE 85 IU/L (1-118); CHLORIDE 106 mEq/L (99-109); POTASSIUM 3.6 mEq/L (3.7-5.4); SODIUM 140 mEq/L (136-147)
[2018-01-25 02:39] LABS: GLUCOSE 262 mg/dL (70-99)
[2018-01-25 02:42] LABS: SERUM ETHYL ALCOHOL 159 mg/dL
[2018-01-25 02:43] LABS: CREATININE 1.6 mg/dL (0.6-1.3); GFR ESTIMATE (CALCULATED) > 59 mL/min/ (58.99-99999)
[2018-01-25 02:44] LABS: UREA NITROGEN (BUN) 17 mg/dL (9-23)
[2018-01-25 02:46] LABS: LIPASE 29 U/L (1.0-51.0)
[2018-01-25 05:26] LABS: APPEARANCE CLEAR ((CLEAR)); BILIRUBIN NEGATIVE; BLOOD SMALL; COLOR YELLOW ((YELLOW)); GLUCOSE (STRIP) >=500; KETONES NEGATIVE; LEUKOCYTES NEGATIVE; NITRITE NEGATIVE; PROTEIN (STRIP) 30; SPECIFIC GRAVITY 1.021 (1.000-1.030); UROBILINOGEN 0.2 MG/DL (0.2-1.0)
[2018-01-25 05:34] LABS: BACTERIA NONE SEEN /HPF; EPITHELIAL CELLS RARE /HPF; MUCUS TRACE /LPF; UCUL ADDED? NO; WHITE BLOOD CELLS 0-5 /HPF (0-5)
[2018-01-25 05:42] LABS: AMPHETAMINE NEGATIVE (500 ng/mL); BARBITURATES NEGATIVE (200 ng/mL); BENZODIAZEPINES NEGATIVE (150 ng/mL); BUPRENORPHINE NEGATIVE (10 ng/mL); COCAINE PRESUMPTIVE POSITIVE (150 ng/mL); METHADONE NEGATIVE (200 ng/mL); METHAMPHETAMINE NEGATIVE (500 ng/mL); OPIATES (MORPHINE) PRESUMPTIVE POSITIVE (100 ng/mL); OXYCODONE PRESUMPTIVE POSITIVE (100 ng/mL); PHENCYCLIDINE NEGATIVE (25 ng/mL); PROPOXYPHENE NEGATIVE (300 ng/mL); THC CANNABINOIDS PRESUMPTIVE POSITIVE (50 ng/mL); TRICYCLIC ANTIDEPRESSANTS NEGATIVE (300 ng/mL)
[2018-01-25 06:01] LABS: CHLORIDE 111 mEq/L (99-109); POTASSIUM 3.6 mEq/L (3.7-5.4); SODIUM 142 mEq/L (136-147)
[2018-01-25 06:02] LABS: GLUCOSE 193 mg/dL (70-99)
[2018-01-25 06:06] LABS: GFR ESTIMATE (CALCULATED) > 59 mL/min/ (58.99-99999)
[2018-01-25 06:07] LABS: UREA NITROGEN (BUN) 11 mg/dL (9-23)
[2018-01-25 06:08] LABS: CREATININE 1.1 mg/dL (0.6-1.3)
[2018-01-25] MEDS ORDERED: NORCO 5/3251 TABLET PO (06:11)
[2018-01-25] MEDS ORDERED: MOTRIN600 MG PO (06:11)
[2018-01-25 06:25] VITALS: BP 167/98
== END 2018-01-25 06:26 | disposition home or self-care (01) ==
LOC: EME 01:11
PROVIDERS: Emergency Medicine
DX: T14.8XXA Other injury of unspecified body region, initial encounter (principal); M79.641 Pain in right hand; M79.642 Pain in left hand; M25.521 Pain in right elbow; M54.9 Dorsalgia, unspecified; M54.2 Cervicalgia; M25.512 Pain in left shoulder; R51 Headache; M25.551 Pain in right hip; M25.552 Pain in left hip; M25.572 Pain in left ankle and joints of left foot; M79.651 Pain in right thigh; V49.40XA Driver injured in collision with unspecified motor vehicles in traffic accident, initial encounter; Y92.410 Unspecified street and highway as the place of occurrence of the external cause; E11.65 Type 2 diabetes mellitus with hyperglycemia; M47.896 Other spondylosis, lumbar region; J98.11 Atelectasis; N40.0 Benign prostatic hyperplasia without lower urinary tract symptoms; I10 Essential (primary) hypertension; J45.909 Unspecified asthma, uncomplicated; Z79.4 Long term (current) use of insulin; F17.200 Nicotine dependence, unspecified, uncomplicated
CPT/HCPCS: 70450; 70486; 71250; 71260; 72125; 73030; 73130; 73522; 73610; 74176; 80048; 80048 91; 81003; 82010; 82150; 83690; 84999; 85025; 86850; 86900; 86901; 99281; 99284; G0480; J1200; J2270; J2405; J2930; J7030